=== PATIENT | male | born 1970 | race Caucasian/White ===

== ENCOUNTER 2023-07-11 06:21 | Inpatient (IN) | payer MEDICARE, MEDICAID ==
[~2023-07-11] VITALS: Ht 180.3 cm; Wt 91.4 kg
[~2023-07-11 06:21] MED LIST: PIPERACILLIN-TAZOB 3.375GM 100 ML IV SCH
[2023-07-11] MEDS: dilTIAZem 25 MG/5 ML VIAL IV ONE ×2 (06:42→07:03)
[2023-07-11 06:56] LABS: Basophils # (auto) 0 10 ^3/uL (0-0.2); Basophils % (auto) 0.1 % (0.0-2.0); Eosinophils # (auto) 0 10 ^3/uL (0-0.8); Hematocrit 48.8 % (41.0-53.0); Hemoglobin 16.5 g/dL (13.5-17.5); Lymphocytes # (auto) 0.9 10 ^3/uL (0.4-5.4); Lymphocytes % (auto) 5.4 % (10.0-50.0); Mean Corpuscular Hemoglobin 30.6 pg (28.0-32.0); Mean Corpuscular Hgb Conc. 33.9 g/dL (32.0-36.0); Mean Corpuscular Volume 90.4 fL (80.0-100.0); Monocytes # (auto) 0.6 10 ^3/uL (0-1.3); Monocytes % (auto) 3.4 % (0.0-12.0); Neutrophils # (auto) 15.3 10 ^3/uL (1.6-8.6); Neutrophils % (auto) 91.1 % (37.0-80.0); Nucleated Red Blood Cells % 0.1 %; White Blood Cell 16.9 10^3/uL (4.4-10.8)
[2023-07-11] MEDS: LORazepam 2MG/ML-1ML VIAL ONE (07:04)
[2023-07-11] MEDS: LORazepam 2MG/ML-1ML VIAL IV ONE (07:04)
[2023-07-11] MEDS: dilTIAZem 125mg/125ml BAG KIT 125 ML IV ONE (07:11)
[2023-07-11] MEDS: ONDANSETRON HCL 4 MG/2 ML VIAL IV ONE (07:11)
[2023-07-11 07:18] LABS: Alanine Aminotransferase 66 U/L (7-40); Alkaline Phosphatase 77 U/L (46-116); Calcium 10.1 mg/dL (8.5-10.1); Chloride 104 mmol/L (98-107)
[2023-07-11 07:19] LABS: Albumin 5.2 g/dL (3.2-4.8); Anion Gap 24 (5-15); Aspartate Aminotransferase 176 U/L (13-40); BUN/Creatinine Ratio 14.5 (10.0-20.0); Bilirubin, Total 0.8 mg/dL (0.2-1.0); Blood Urea Nitrogen 18 mg/dL (9-23); Carbon Dioxide 10 mmol/L (20-30); Glucose 79 mg/dL (74-106); Potassium 4.2 mmol/L (3.5-5.1); Sodium 138 mmol/L (136-145); Total Protein 7.6 g/dL (5.7-8.2)
[2023-07-11 07:52] LABS: Partial Thromboplastin Time 61.5 SEC (24.5-34.5); Prothrombin Time 47.9 sec (9.3-11.8)
[2023-07-11 07:55] VITALS: PULSE 103; RESP 17; O2SAT 98
[2023-07-11 08:02] LABS: INR 5.07 (0.9-1.15)
[2023-07-11] MEDS: SODIUM CHLORIDE 0.9% 1,000 ML IV ONE (08:41)
[2023-07-11] MEDS: THIAMINE 100mg/ml INJ (200mg/2ml VIAL) IV ONE (08:41)
[2023-07-11] MEDS: HALOPERIDOL LACTATE 5 MG/ML INJ VIAL ONE (09:12)
[2023-07-11] MEDS: MORPHINE SULFATE 4 MG/ML SYR/VIAL ONE (09:13)
[2023-07-11] MEDS: HALOPERIDOL LACTATE 5 MG/ML INJ VIAL IM ONE (09:14)
[2023-07-11] MEDS: MORPHINE SULFATE 4 MG/ML SYR/VIAL IV ONE (09:16)
[2023-07-11 09:24] LABS: Urine Bacteria None Seen /hpf (None Seen)
[2023-07-11 10:09] LABS: Urine Blood 2+ /uL (Negative); Urine Clarity Clear (Clear); Urine Color Light-Yellow (Yellow); Urine Protein, UAD 1+ (Negative); Urine Specific Gravity 1.024 (1.001-1.035); Urine Urobilinogen Normal (Negative); Urine WBC <1 /hpf (0 - 3); Urine pH 5.5 (5.0-9.0)
[2023-07-11 10:11] LABS: Amphetamine Screen, Urine Neg (NEGATIVE); Barbiturate Scree,Urine Neg (NEGATIVE); Benzodiazephine Screen, Urine Neg (NEGATIVE); Cocaine Screen, Urine Neg (NEGATIVE)
[2023-07-11 10:12] LABS: Cannabinoid Screen, Urine Pos (NEGATIVE); Opiate Scree,Urine Neg (NEGATIVE); Phencyclidine Screen, Urine Neg (NEGATIVE)
[2023-07-11] MEDS: MIDAZOLAM HCL 2MG/2ML 2ml VIAL (1mg/ml) ONE ×3 (11:19→12:17)
[2023-07-11] MEDS: MIDAZOLAM HCL 2MG/2ML 2ml VIAL (1mg/ml) IV ONE ×3 (11:26→12:18)
[2023-07-11] MEDS: MIDAZOLAM HCL 5 MG/ML-1ML VIAL ONE (12:48)
[2023-07-11] MEDS: MIDAZOLAM HCL 5 MG/ML-1ML VIAL IV ONE (12:49)
[2023-07-11] MEDS: phytonadione 1 ML ONE (13:58)
[2023-07-11] MEDS: PIPERACILLIN-TAZOB 3.375GM 100 ML IV ONE ×2 (13:59→14:04)
[2023-07-11] MEDS: PHYTONADIONE (VIT K)10 MG/ML 1ML VIAL SUBCUT ONE (14:01)
[2023-07-11 14:09] LABS: Alanine Aminotransferase 63 U/L (7-40); Albumin 4.6 g/dL (3.2-4.8); Alkaline Phosphatase 66 U/L (46-116); Anion Gap 19.00001 (5-15); Aspartate Aminotransferase 166 U/L (13-40); BUN/Creatinine Ratio 16.4 (10.0-20.0); Bilirubin, Total 0.6 mg/dL (0.2-1.0); Blood Urea Nitrogen 19 mg/dL (9-23); Calcium 9.2 mg/dL (8.5-10.1); Chloride 110 mmol/L (98-107); Glucose 75 mg/dL (74-106); Potassium 4.1 mmol/L (3.5-5.1); Sodium 139 mmol/L (136-145); Total Protein 6.6 g/dL (5.7-8.2)
[2023-07-11 14:17] LABS: Carbon Dioxide < 10 mmol/L (20-30)
[2023-07-11 14:22] LABS: Phosphorus 4.5 mg/dL (2.4-5.1)
[2023-07-11 14:26] LABS: Magnesium 1.7 mg/dL (1.6-2.6)
[2023-07-11] MEDS: dilTIAZem 125mg/125ml BAG KIT 125 ML IV SCH (16:37)
[2023-07-11] MEDS: SODIUM BICARB 8.4% 50Meq/50ml SYR Vial IV ONE (16:44)
[2023-07-11] MEDS: SODIUM BICARB 50mEq/50ml Vial 150 ML in D5W 5% 1,000 ML IV ONE (17:33)
[2023-07-11 18:18] LABS: Base Excess -7.7 mmol/L (-2.0-2.0)
[2023-07-11 19:05] LABS: Hematocrit 42.3 % (41.0-53.0); Hemoglobin 14.3 g/dL (13.5-17.5)
[2023-07-11 19:19] LABS: Alanine Aminotransferase 65 U/L (7-40); Albumin 4.3 g/dL (3.2-4.8); Alkaline Phosphatase 60 U/L (46-116); Anion Gap 14 (5-15); Aspartate Aminotransferase 168 U/L (13-40); BUN/Creatinine Ratio 12.7 (10.0-20.0); Blood Urea Nitrogen 15 mg/dL (9-23); Calcium 9.1 mg/dL (8.7-10.4); Carbon Dioxide 13 mmol/L (20-30); Chloride 113 mmol/L (98-107); Glucose 90 mg/dL (74-106); Potassium 3.8 mmol/L (3.5-5.1); Sodium 140 mmol/L (136-145)
[2023-07-11 19:20] LABS: Bilirubin, Total 0.8 mg/dL (0.2-1.0); Total Protein 6.7 g/dL (5.7-8.2)
[2023-07-11] MEDS: PANTOPRAZOLE 40mg/50ML NS AE 50 ML IV SCH (19:37)
[2023-07-11] MEDS: PANTOPRAZOLE 80 MG in SODIUM CHL 0.9% 100 ML IV ONE (19:37)
[2023-07-11 19:45] VITALS: PULSE 106; RESP 23; O2SAT 96
[2023-07-11] MEDS: HYDROmorphone HCL 2 MG/ML VL/or syr IV ONE (20:15)
[2023-07-11] MEDS: IOHEXOL 350 MG/ML 100ML IJ ONE (20:55)
[2023-07-11] MEDS: PIPERACILLIN-TAZOB 3.375GM 100 ML IV SCH (21:40)
[2023-07-11] MEDS: diphenhdrAMINE HCL 50 MG/1 ML VL IV ONE (22:12)
[2023-07-11] MEDS: FUROSEMIDE 20 MG/2 ML VIAL IV SCH (22:13)
[2023-07-11] MEDS: ATORVASTATIN 20 MG TAB PO SCH (22:13)
[2023-07-11] MEDS: LORazepam 2MG/ML-1ML VIAL IV PRN (23:35)
[2023-07-12 00:29] LABS: Hematocrit 40.7 % (41.0-53.0); Hemoglobin 13.8 g/dL (13.5-17.5)
[2023-07-12] MEDS: HYDROmorphone HCL 2 MG/ML VL/or syr IV PRN (03:36)
[2023-07-12 05:51] LABS: Basophils # (auto) 0 10 ^3/uL (0-0.2); Basophils % (auto) 0.2 % (0.0-2.0); Eosinophils # (auto) 0 10 ^3/uL (0-0.8); Hematocrit 40.8 % (41.0-53.0); Hemoglobin 14.1 g/dL (13.5-17.5); Lymphocytes # (auto) 1.2 10 ^3/uL (0.4-5.4); Lymphocytes % (auto) 10.3 % (10.0-50.0); Mean Corpuscular Hemoglobin 30.6 pg (28.0-32.0); Mean Corpuscular Hgb Conc. 34.6 g/dL (32.0-36.0); Mean Corpuscular Volume 88.6 fL (80.0-100.0); Monocytes # (auto) 1.2 10 ^3/uL (0-1.3); Monocytes % (auto) 9.9 % (0.0-12.0); Neutrophils # (auto) 9.5 10 ^3/uL (1.6-8.6); Neutrophils % (auto) 79.6 % (37.0-80.0); Red Blood Cells 4.61 10^6/uL (4.5-5.90); Red Cell Distribution Width 13.9 % (11.8-14.3); White Blood Cell 11.9 10^3/uL (4.4-10.8)
[2023-07-12 06:01] LABS: INR 1.91 (0.9-1.15); Prothrombin Time 19.2 sec (9.3-11.8)
[2023-07-12 06:30] LABS: Alanine Aminotransferase 68 U/L (7-40); Albumin 4.4 g/dL (3.2-4.8); Alkaline Phosphatase 61 U/L (46-116); Anion Gap 13 (5-15); Aspartate Aminotransferase 148 U/L (13-40); BUN/Creatinine Ratio 16.2 (10.0-20.0); Blood Urea Nitrogen 19 mg/dL (9-23); Calcium 9.5 mg/dL (8.7-10.4); Carbon Dioxide 19 mmol/L (20-30); Chloride 108 mmol/L (98-107); Glucose 116 mg/dL (74-106); Potassium 3.3 mmol/L (3.5-5.1); Sodium 140 mmol/L (136-145)
[2023-07-12 08:28] VITALS: PULSE 92; RESP 16; O2SAT 96
[2023-07-12 12:11] LABS: Hematocrit 38.2 % (41.0-53.0); Hemoglobin 13.2 g/dL (13.5-17.5)
[2023-07-12] MEDS: POTASSIUM CHL 20 Meq TABLET PO ONE (12:25)
[2023-07-12] MEDS: SODIUM CHLORIDE 0.9% 1,000 ML IV SCH (12:26)
[2023-07-12] MEDS: dilTIAZem 120MG ER CAP PO ONE (16:20)
[2023-07-12] MEDS: WARFARIN SODIUM 2 MG TAB PO ONE (17:09)
[2023-07-12 18:11] LABS: Hematocrit 37.7 % (41.0-53.0)
[2023-07-13] VITALS (8 sets, daily range): BP systolic 108–134; BP diastolic 67–81; PULSE 70–98; RESP 16–18; TEMP 97.4–100.6; O2SAT 95–97
[2023-07-13 06:47] LABS: INR 1.17 (0.9-1.15); Prothrombin Time 12.2 sec (9.3-11.8)
[2023-07-13 09:22] LABS: Hepatitis B Surface Antigen Negative (Negative)
[2023-07-13 09:43] LABS: Hepatitis C Antibody Negative (Negative)
[2023-07-13] MEDS: dilTIAZem 120MG ER CAP PO SCH (09:48)
[2023-07-13] MEDS: POTASSIUM CHL 20 Meq TABLET PO ONE (11:28)
[2023-07-13] MEDS: WARFARIN SODIUM 2 MG TAB PO ONE (17:56)
[2023-07-14 01:00] VITALS: BP 140/86; PULSE 93; RESP 18; TEMP 97.9; O2SAT 96
[2023-07-14 05:00] VITALS: BP 136/82; PULSE 89; RESP 18; TEMP 97.9; O2SAT 97
[2023-07-14 07:19] LABS: INR 1.28 (0.9-1.15); Prothrombin Time 13.2 sec (9.3-11.8)
[2023-07-14 08:00] VITALS: PULSE 81
[2023-07-14 08:48] VITALS: BP 125/77; PULSE 89; RESP 20; TEMP 97.8; O2SAT 98
[2023-07-14] MEDS ORDERED: PANT40T PO (09:48)
[2023-07-14] MEDS ORDERED: DILT-29 PO (09:48)
== END 2023-07-14 14:05 | disposition home or self-care (01) | DRG 871 ==
LOC: EDBD 06:21 → ER 06:21 → TELE 12:53 → TELE-EAST 07-13 02:50
PROVIDERS: ADMIT Nurse Practitioner Family; ATTEND Family Medicine
DX: A41.9 Sepsis, unspecified organism (principal); G93.41 Metabolic encephalopathy; I50.41 Acute combined systolic (congestive) and diastolic (congestive) heart failure; D68.59 Other primary thrombophilia; K92.2 Gastrointestinal hemorrhage, unspecified; E87.20 Acidosis, unspecified; K86.1 Other chronic pancreatitis; I48.91 Unspecified atrial fibrillation; I11.0 Hypertensive heart disease with heart failure; F12.10 Cannabis abuse, uncomplicated; E78.00 Pure hypercholesterolemia, unspecified; F32.A Depression, unspecified; F41.9 Anxiety disorder, unspecified; K21.9 Gastro-esophageal reflux disease without esophagitis; R74.01 Elevation of levels of liver transaminase levels; Z79.01 Long term (current) use of anticoagulants; Z79.899 Other long term (current) drug therapy
CPT/HCPCS: 36415; 36600; 70450; 71045; 71275; 74176; 80053; 80307; 80320; 81001; 82010; 82805; 82962; 83605; 83690; 83735; 84100; 84484; 85014; 85018; 85025; 85610; 85730; 86803; 87040; 87340; 93005; 93306; 96361; 96365; 96375; C9113; G0378; J2250; J2405; J2543; J3430

== ENCOUNTER 2023-09-07 13:35 | Emergency (ER) | payer MEDICARE, MEDICAID ==
[~2023-09-07] VITALS: Ht 182.9 cm; Wt 106.3 kg
[~2023-09-07 13:35] MED LIST changes: +DILT-29 PO; +PANT40T PO; -PIPERACILLIN-TAZOB 3.375GM 100 ML IV SCH
[2023-09-07 16:20] VITALS: BP 121/76; PULSE 91; RESP 12; TEMP 97.7; O2SAT 97
[2023-09-07] MEDS ORDERED: CEPH500C PO (17:43)
== END 2023-09-07 17:43 | disposition home or self-care (01) ==
LOC: ER 13:35
DX: S69.92XA Unspecified injury of left wrist, hand and finger(s), initial encounter (principal); F12.10 Cannabis abuse, uncomplicated; K21.9 Gastro-esophageal reflux disease without esophagitis; Z88.6 Allergy status to analgesic agent; V87.8XXA Person injured in other specified noncollision transport accidents involving motor vehicle (traffic), initial encounter; Y93.89 Activity, other specified; Y92.89 Other specified places as the place of occurrence of the external cause; Y99.8 Other external cause status
CPT/HCPCS: 73130

== ENCOUNTER → 2023-09-16 | Outpatient (CLI) | payer MEDICARE, MEDICAID ==
[~2023-09-16] MED LIST changes: +CEPH500C PO
[2023-09-16 12:19] LABS: Basophils # (auto) 0 10 ^3/uL (0-0.2); Basophils % (auto) 0.5 % (0.0-2.0); Eosinophils # (auto) 0.2 10 ^3/uL (0-0.8); Eosinophils % (auto) 2.8 % (0.0-7.0); Hematocrit 46.3 % (41.0-53.0); Hemoglobin 16.1 g/dL (13.5-17.5); Lymphocytes # (auto) 1.5 10 ^3/uL (0.4-5.4); Lymphocytes % (auto) 28.3 % (10.0-50.0); Mean Corpuscular Hemoglobin 31.3 pg (28.0-32.0); Mean Corpuscular Hgb Conc. 34.7 g/dL (32.0-36.0); Mean Corpuscular Volume 90.3 fL (80.0-100.0); Monocytes # (auto) 0.5 10 ^3/uL (0-1.3); Neutrophils # (auto) 3.2 10 ^3/uL (1.6-8.6); Neutrophils % (auto) 59.4 % (37.0-80.0); Nucleated Red Blood Cells % 0.1 %; Red Blood Cells 5.13 10^6/uL (4.5-5.90); Red Cell Distribution Width 15.4 % (11.8-14.3); White Blood Cell 5.4 10^3/uL (4.4-10.8)
[2023-09-16 12:36] LABS: INR 2.64 (0.9-1.15)
[2023-09-16 12:41] LABS: Alanine Aminotransferase 43 U/L (7-40); Albumin 4.8 g/dL (3.2-4.8); Alkaline Phosphatase 88 U/L (46-116); Anion Gap 0 (5-15); Aspartate Aminotransferase 27 U/L (13-40); BUN/Creatinine Ratio 15.2 (10.0-20.0); Bilirubin, Total 0.3 mg/dL (0.2-1.0); Blood Urea Nitrogen 16 mg/dL (9-23); Calcium 9.7 mg/dL (8.5-10.1); Carbon Dioxide 28 mmol/L (20-30); Chloride 110 mmol/L (98-107); Glucose 93 mg/dL (74-106); Potassium 4.5 mmol/L (3.5-5.1); Sodium 138 mmol/L (136-145); Total Protein 7.5 g/dL (5.7-8.2)
== END | disposition home or self-care (01) ==
LOC: LAB 12:03
PROVIDERS: ATTEND Internal Medicine Gastroenterology
DX: K62.5 Hemorrhage of anus and rectum (principal); R19.4 Change in bowel habit
CPT/HCPCS: 36415; 80053; 84403; 85025; 85610

== ENCOUNTER → 2023-09-17 | Outpatient (CLI) | payer MEDICARE, MEDICAID | END | disposition home or self-care (01) | LOC: LAB 10:49 | PROVIDERS: ATTEND Urology | DX: R97.20 Elevated prostate specific antigen [PSA] (principal) | CPT/HCPCS: 84153 ==

== ENCOUNTER 2023-09-28 08:57 | Inpatient (IN) | payer MEDICARE, MEDICAID ==
[~2023-09-28] VITALS: Ht 185.4 cm; Wt 100.8 kg
[2023-09-28] MEDS: ONDANSETRON HCL 4 MG/2 ML VIAL IV ONE (11:00)
[2023-09-28 11:35] LABS: Basophils # (auto) 0 10 ^3/uL (0-0.2); Basophils % (auto) 0.3 % (0.0-2.0); Eosinophils # (auto) 0 10 ^3/uL (0-0.8); Eosinophils % (auto) 0.1 % (0.0-7.0); Hematocrit 49.3 % (41.0-53.0); Lymphocytes # (auto) 0.6 10 ^3/uL (0.4-5.4); Lymphocytes % (auto) 5.5 % (10.0-50.0); Mean Corpuscular Hemoglobin 31.8 pg (28.0-32.0); Mean Corpuscular Hgb Conc. 34.5 g/dL (32.0-36.0); Monocytes # (auto) 0.7 10 ^3/uL (0-1.3); Neutrophils # (auto) 9.1 10 ^3/uL (1.6-8.6); Neutrophils % (auto) 87.1 % (37.0-80.0); Red Blood Cells 5.35 10^6/uL (4.5-5.90); Red Cell Distribution Width 14.5 % (11.8-14.3); White Blood Cell 10.5 10^3/uL (4.4-10.8)
[2023-09-28] MEDS: ASPirin 81 mg TAB PO ONE (11:46)
[2023-09-28] MEDS: SODIUM CHLORIDE 0.9% 1,000 ML IV ONE (11:47)
[2023-09-28 12:01] LABS: Partial Thromboplastin Time 52.2 SEC (24.5-34.5); Prothrombin Time 42.1 sec (9.3-11.8)
[2023-09-28 12:02] LABS: Alanine Aminotransferase 43 U/L (7-40); Alkaline Phosphatase 89 U/L (46-116); Anion Gap 5 (5-15); Aspartate Aminotransferase 69 U/L (13-40); BUN/Creatinine Ratio 9.8 (10.0-20.0); Blood Urea Nitrogen 12 mg/dL (9-23); Carbon Dioxide 27 mmol/L (20-30); Chloride 106 mmol/L (98-107); Glucose 110 mg/dL (74-106); Potassium 4.8 mmol/L (3.5-5.1); Sodium 138 mmol/L (136-145)
[2023-09-28 12:03] LABS: Bilirubin, Total 0.5 mg/dL (0.2-1.0); Total Protein 7.6 g/dL (5.7-8.2)
[2023-09-28 12:24] LABS: INR 4.44 (0.9-1.15)
[2023-09-28] MEDS ORDERED: ONDANSETRON HCL 4 MG/2 ML VIAL IV PRN (15:45)
[2023-09-28] MEDS ORDERED: BREX1TAB6 PO (15:46)
[2023-09-28] MEDS ORDERED: WARF-66 PO (15:46)
[2023-09-28] MEDS ORDERED: BREX1TAB5 PO (15:46)
[2023-09-28] MEDS ORDERED: PREG150C63 PO (15:46)
[2023-09-28] MEDS: SODIUM CHLORIDE 0.9% 1,000 ML IV SCH (16:00)
[2023-09-28] MEDS: PREGABALIN CAPSULE 75 MG CAP PO SCH (22:46)
[2023-09-29] VITALS (7 sets, daily range): BP systolic 108–128; BP diastolic 59–90; PULSE 86–101; RESP 14–20; TEMP 97.4–98.5; O2SAT 95–98
[2023-09-29] MEDS ORDERED: BACL10TA PO (01:22)
[2023-09-29] MEDS ORDERED: SERT-160 PO (01:22)
[2023-09-29] MEDS ORDERED: MORP30TA5 PO (01:22)
[2023-09-29 02:20] LABS: Urine Bacteria None Seen /hpf (None Seen)
[2023-09-29 02:33] LABS: Urine Blood TRACE /uL (Negative); Urine Clarity Clear (Clear); Urine Color Yellow (Yellow); Urine Mucus FEW (None Seen); Urine Protein, UAD Negative (Negative); Urine Specific Gravity 1.019 (1.001-1.035); Urine Urobilinogen Normal (Negative); Urine WBC 1 /hpf (0 - 3); Urine pH 5.5 (5.0-9.0)
[2023-09-29 03:06] LABS: Amphetamine Screen, Urine Neg (NEGATIVE); Barbiturate Scree,Urine Neg (NEGATIVE); Benzodiazephine Screen, Urine Neg (NEGATIVE)
[2023-09-29 03:07] LABS: Cannabinoid Screen, Urine Pos (NEGATIVE); Cocaine Screen, Urine Neg (NEGATIVE); Opiate Scree,Urine Pos (NEGATIVE); Phencyclidine Screen, Urine Neg (NEGATIVE)
[2023-09-29] MEDS: HYDROcodone-ACET 5/325MG TAB PO PRN (06:09)
[2023-09-29 07:04] LABS: Basophils # (auto) 0 10 ^3/uL (0-0.2); Basophils % (auto) 0.5 % (0.0-2.0); Eosinophils # (auto) 0 10 ^3/uL (0-0.8); Eosinophils % (auto) 0.4 % (0.0-7.0); Hematocrit 44.8 % (41.0-53.0); Hemoglobin 15.3 g/dL (13.5-17.5); Mean Corpuscular Hemoglobin 31.2 pg (28.0-32.0); Mean Corpuscular Hgb Conc. 34.1 g/dL (32.0-36.0); Mean Corpuscular Volume 91.3 fL (80.0-100.0); Monocytes # (auto) 0.8 10 ^3/uL (0-1.3); Monocytes % (auto) 13.5 % (0.0-12.0); Neutrophils # (auto) 4.2 10 ^3/uL (1.6-8.6); Neutrophils % (auto) 68.6 % (37.0-80.0); Nucleated Red Blood Cells % 0.2 %; Red Blood Cells 4.91 10^6/uL (4.5-5.90); Red Cell Distribution Width 14.7 % (11.8-14.3); White Blood Cell 6.1 10^3/uL (4.4-10.8)
[2023-09-29 07:29] LABS: Alanine Aminotransferase 45 U/L (7-40); Alkaline Phosphatase 73 U/L (46-116); Anion Gap 7 (5-15); BUN/Creatinine Ratio 15.1 (10.0-20.0); Blood Urea Nitrogen 16 mg/dL (9-23); Calcium 9.4 mg/dL (8.5-10.1); Carbon Dioxide 24 mmol/L (20-30); Chloride 107 mmol/L (98-107); Glucose 117 mg/dL (74-106); Potassium 3.9 mmol/L (3.5-5.1); Sodium 138 mmol/L (136-145)
[2023-09-29 07:30] LABS: INR 3.77 (0.9-1.15); Prothrombin Time 36.2 sec (9.3-11.8)
[2023-09-29 07:31] LABS: Albumin 4.4 g/dL (3.2-4.8); Aspartate Aminotransferase 75 U/L (13-40); Bilirubin, Total 0.7 mg/dL (0.2-1.0); Total Protein 6.6 g/dL (5.7-8.2)
[2023-09-29] MEDS: PANTOPRAZOLE 40 MG TAB PO SCH (09:22)
[2023-09-29] MEDS: dilTIAZem 120MG ER CAP PO SCH (09:22)
[2023-09-29] MEDS ORDERED: OXYC325T14 PO (17:21)
[2023-09-29] MEDS ORDERED: ERGO1CAP12 PO (17:21)
[2023-09-29] MEDS ORDERED: VORT1TAB3 PO (17:21)
[2023-09-29] MEDS ORDERED: BENZ1TAB6 PO (17:21)
[2023-09-29] MEDS ORDERED: LUBI24CA7 PO (17:21)
[2023-09-29 17:35] LABS: Triglycerides 134 mg/dL (< 150)
[2023-09-29 17:36] LABS: LDL Cholesterol 143 mg/dL (< 100)
[2023-09-29 17:37] LABS: Cholesterol 190 mg/dL (< 200); HDL Cholesterol 39 mg/dL (40-59)
[2023-09-29] MEDS: CYANOCOBALAMIN (B-12) 1000 MCG/1 ML VIAL IM ONE (18:54)
[2023-09-29] MEDS: BREXPIPRAZOLE 4 MG PO SCH (21:20)
[2023-09-29] MEDS: ATORVASTATIN 20 MG TAB PO SCH (21:21)
[2023-09-29] MEDS: BACLOFEN 10 MG TAB PO SCH (21:24)
[2023-09-30] VITALS (7 sets, daily range): BP systolic 114–130; BP diastolic 70–83; PULSE 76–108; RESP 17–20; TEMP 97.7–98.4; O2SAT 94–100
[2023-09-30 06:06] LABS: RPR Non Reactive (Non Reactive)
[2023-09-30 07:04] LABS: INR 2.04 (0.9-1.15); Partial Thromboplastin Time 39.6 SEC (24.5-34.5); Prothrombin Time 20.5 sec (9.3-11.8)
[2023-09-30] MEDS: ASPirin 81 mg TAB PO SCH (08:55)
[2023-09-30] MEDS: CYANOCOBALAMIN 500 MCG TAB PO SCH (08:55)
[2023-09-30 09:43] LABS: Alanine Aminotransferase 48 U/L (7-40); Alkaline Phosphatase 71 U/L (46-116); Calcium 9.5 mg/dL (8.5-10.1); Carbon Dioxide 22 mmol/L (20-30); Chloride 108 mmol/L (98-107)
[2023-09-30 09:44] LABS: Albumin 4.4 g/dL (3.2-4.8); Anion Gap 7 (5-15); Aspartate Aminotransferase 72 U/L (13-40); BUN/Creatinine Ratio 17.8 (10.0-20.0); Bilirubin, Total 0.6 mg/dL (0.2-1.0); Blood Urea Nitrogen 16 mg/dL (9-23); Glucose 97 mg/dL (74-106); Sodium 137 mmol/L (136-145); Total Protein 6.7 g/dL (5.7-8.2)
[2023-09-30] MEDS: APIXABAN 5 MG TAB PO SCH (10:21)
[2023-09-30] MEDS: BENZTROPINE MESY 0.5 MG TAB PO SCH (21:10)
[2023-10-01 01:00] VITALS: BP 101/62; PULSE 93; RESP 20; TEMP 97.2; O2SAT 98
[2023-10-01] MEDS: MELATONIN 5 MG TAB PO ONE (01:27)
[2023-10-01 05:00] VITALS: BP 112/75; PULSE 92; RESP 20; TEMP 97.6; O2SAT 98
[2023-10-01 06:01] LABS: Basophils # (auto) 0 10 ^3/uL (0-0.2); Basophils % (auto) 0.5 % (0.0-2.0); Eosinophils # (auto) 0.1 10 ^3/uL (0-0.8); Eosinophils % (auto) 1.3 % (0.0-7.0); Hematocrit 44.1 % (41.0-53.0); Hemoglobin 15.4 g/dL (13.5-17.5); Lymphocytes # (auto) 1.4 10 ^3/uL (0.4-5.4); Lymphocytes % (auto) 16.5 % (10.0-50.0); Mean Corpuscular Hemoglobin 31.4 pg (28.0-32.0); Mean Corpuscular Hgb Conc. 34.9 g/dL (32.0-36.0); Mean Corpuscular Volume 89.8 fL (80.0-100.0); Monocytes # (auto) 0.7 10 ^3/uL (0-1.3); Neutrophils # (auto) 6.3 10 ^3/uL (1.6-8.6); Neutrophils % (auto) 73.7 % (37.0-80.0); Red Blood Cells 4.91 10^6/uL (4.5-5.90); Red Cell Distribution Width 14.2 % (11.8-14.3); White Blood Cell 8.5 10^3/uL (4.4-10.8)
[2023-10-01 06:21] LABS: INR 1.37 (0.9-1.15); Partial Thromboplastin Time 33.1 SEC (24.5-34.5); Prothrombin Time 14.2 sec (9.3-11.8)
[2023-10-01 07:37] VITALS: BP 114/81; PULSE 95; RESP 20; TEMP 97.4; O2SAT 96
[2023-10-01 08:00] VITALS: PULSE 95; RESP 20; O2SAT 96
[2023-10-01 10:37] VITALS: BP 114/81; PULSE 95; RESP 20; TEMP 97.4; O2SAT 96
== END 2023-10-01 11:30 | DRG 308 ==
LOC: ER 08:57 → TELE 15:34 → TELE-CENTR 23:25 → CENTRAL 09-30 02:35
PROVIDERS: ADMIT Internal Medicine; ATTEND Emergency Medicine
DX: I48.19 Other persistent atrial fibrillation (principal); G92.8 Other toxic encephalopathy; D68.59 Other primary thrombophilia; F32.A Depression, unspecified; G89.4 Chronic pain syndrome; T45.515A Adverse effect of anticoagulants, initial encounter; I10 Essential (primary) hypertension; F12.90 Cannabis use, unspecified, uncomplicated; R74.01 Elevation of levels of liver transaminase levels; F20.9 Schizophrenia, unspecified; K21.9 Gastro-esophageal reflux disease without esophagitis; Z79.899 Other long term (current) drug therapy; Y92.89 Other specified places as the place of occurrence of the external cause; Z79.01 Long term (current) use of anticoagulants; Z71.51 Drug abuse counseling and surveillance of drug abuser
CPT/HCPCS: 36415; 70450; 71046; 80053; 80061; 80307; 80320; 81001; 82140; 82306; 82607; 82746; 82962; 83036; 83735; 84443; 85025; 85379; 85610; 85730; 86592; 93005; 96361; 96374; 97110; 97116; 97163; 97530; G0378; J2405

== ENCOUNTER 2024-04-29 18:53 | Inpatient (IN) | payer MEDICARE, MEDICAID ==
[~2024-04-29] VITALS: Ht 182.9 cm; Wt 117.4 kg
[~2024-04-29 18:53] MED LIST changes: +BACL10TA PO; +BENZ1TAB6 PO; +BREX1TAB6 PO; +ERGO1CAP12 PO; +LUBI24CA7 PO; +MORP30TA5 PO; +OXYC325T14 PO; +PREG150C63 PO; +SERT-160 PO; +VORT1TAB3 PO; +WARF-66 PO
--- NOTE | 2024-04-29 19:08 | ED.PDOC ---
Altered Mental Status HPI Comments 54 yo male with a medical history of AFIB, presents to the ED for an evaluation of a syncopal episode associated with nausea and vomiting this morning Patient reports having multiple syncopal episodes over the span of 2-3 days, states they come onset spontaneously with no triggers and has had positive head and right shoulder injury. Patient reports brief episodes of confusions with SOB x 1 year and has not been evaluated for this. Patient denies any dizziness, fever, chills, chest pain. He reports the use of marijuana. Time Seen by MD: 19:00 Primary Care Provider: UNKNOWN Reviewed Notes: Nurses Notes, Medications, Allergies Allergies: Coded Allergies: Codeine (Verified Allergy, Mild, 09/29/23) patients states codeine makes him vomit Home Meds Active Scripts Cephalexin Monohydrate (Cephalexin) 500 Mg Cap, 1 CAP PO QID for 5 Days, #20 CAP 0 Refills Prov:NENITA SKELTON [employer] 09/07/23 Pantoprazole Sodium Sesquihydr (Pantoprazole Sodium) 40 Mg Tab, 40 MG PO DAILY, #30 TAB Prov:MATEO HOLLEY MD 07/14/23 Diltiazem Hcl (DILTIAZEM HCL ER) 240 Mg Cap, 1 CAP PO DAILY, #90 CAP 1 Refill Prov:MATEO HOLLEY MD 07/14/23 Reported Medications Ergocalciferol (Vitamin D) 50,000 Unit Cap, 1 CAP PO QWEEKLY 09/29/23 Benztropine Mesylate (Benztropine Mesylate) 1 Mg Tab, 1 TAB PO BID 09/29/23 Vortioxetine Hydrobromide (Trintellix) 20 Mg Tab, 1 TAB PO HS 09/29/23 Lubiprostone (Amitiza) 24 Mcg Cap, 1 CAP PO DAILY 09/29/23 Oxycodone W/ Acetaminophen (Apap/Oxycodone) 1 Tab Tab, 1 TAB PO Q8HR [10/325 mg] 09/29/23 Sertraline Hcl (Sertraline Hcl) 100 Mg Tab, 1 TAB PO BID 09/29/23 Baclofen (Baclofen) 10 Mg Tab, 1 TAB PO TID 09/29/23 Morphine Sulfate (Morphine Sulfate Cr) 30 Mg Tab, 1 TAB PO BID 09/29/23 Brexpiprazole (Rexulti) 4 Mg Tab, 1 TAB PO DAILY 09/28/23 Pregabalin (Pregabalin) 150 Mg Cap, 1 CAP PO BID 09/28/23 Warfarin Sodium (Warfarin Sodium) 5 Mg Tab, TAB PO UD Take 1 tablet (5 mg) by mouth once daily, EXCEPT take 1 and 1/2 tablets (7.5 mg) by mouth on Thursday09/28/23 Information Source: Patient Mode of Arrival: Ambulatory Severity: Moderate Timing: Came on: Gradually Duration: Since onset Quality: Confusion Recent: Nausea, Vomiting History of: None Associated Signs and Symptoms: Other Past Medical History PAST MEDICAL HISTORY: AFIB, Depression, GERD Surgical History (Other): Bilateral shoulder and neck Family History Family History: Unknown Social History Smoker: Non-Smoker Alcohol: Denies ETOH Use Drugs: Marijuana Lives In: Home Constitutional: denies: chills, diaphoresis, fatigue, fever, malaise, sweats, weakness, others EENTM: denies: blurred vision, double vision, ear bleeding, ear discharge, ear drainage, ear pain, ear ringing, eye pain, eye redness, hearing loss, mouth pain, mouth swelling, nasal discharge, nose bleeding, nose congestion, nose pain, photophobia, tearing, throat pain, throat swelling, voice changes, others Respiratory: reports: SOB at rest, shortness of breath, SOB with excertion; denies: cough, hemoptysis, orthopnea, stridor, wheezing, others Cardiovascular: reports: syncope; denies: chest pain, dizzy spells, diaphoresis, Dyspnea on exertion, edema, irregular heart beat, left arm pain, lightheadedness, palpitations, PND, others Gastrointestinal: reports: nausea, vomiting; denies: abdomen distended, abdominal pain, blood streaked bowels, constipated, diarrhea, dysphagia, difficulty swallowing, hematemesis, melena, poor appetite, poor fluid intake, rectal bleeding, rectal pain, others Genitourinary: denies: burning, dysuria, flank pain, frequency, hematuria, incontinence, penile discharge, penile sore, pain, testicle pain, testicle swelling, urgency, others Neurological: denies: dizziness, fainting, headache, left sided numbness, left sided weakness, numbness, paresthesia, pre-existing deficit, right sided numbness, right sided weakness, seizure, speech problems, tingling, tremors, weakness, others Musculoskeletal: denies: back pain, gout, joint pain, joint swelling, muscle pain, muscle stiffness, neck pain, others Integumetry: denies: bruises, change in color, change in hair/nails, dryness, laceration, lesions, lumps, rash, wounds, others Allergic/Immunocompromised: denies: Difficulty Healing, Frequent Infections, Hives, Itching, others Hematologic/Lymphatic: denies: anemia, blood clots, easy bleeding, easy bruising, swollen glands, others Endocrine: denies: excessive hunger, excessive sweating, excessive thirst, excessive urination, flushing, intolerance to cold, intolerance to heat, unexplained weight gain, unexplained weight loss, others Psychiatric: denies: anxiety, bipolar disorder, depression, hopeless, panic disorder, schizophrenia, sleepless, suicidal, others All Other Systems: Reviewed and Negative Physical Exam General Appearance: Moderate Distress HEENT: Normal ENT Inspection, Pharynx Normal, TMs Normal Neck: Full Range of Motion, Non-Tender, Normal, Normal Inspection Respiratory: Chest Non-Tender, Lungs Clear, No Accessory Muscle Use, No Respiratory Distress, Normal Breath Sounds Cardiovascular: No Edema, No JVD, No Murmur, No Gallop, Normal Peripheral Pulses, Regular Rate/Rhythm Breast Exam: Deferred Gastrointestinal: No Organomegaly, Non Tender, No Pulsatile Mass, Normal Bowel Sounds, Soft Genitalia: Deferred Pelvic: Deferred Rectal: Deferred Extremities: No calf tenderness, Normal capillary refill, Normal inspection, Normal range of motion, Non-tender, No pedal edema Musculoskeletal : Apperance: Normal 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 Was a procedure done?: No Differential Diagnosis (ALOC) Differential Diagnosis: Dehydration, Closed Head Injury X-Ray, Labs, Meds, VS Vital Signs Date Time Temp Pulse Resp B/P (MAP) Pulse Ox O2 Delivery O2 Flow Rate FiO2 04/29/24 19:39 98.2 90 20 150/86 (107) 95 Lab Test 04/29/24 19:37 04/29/24 19:18 Range/Units POC Glucose Pending White Blood Count 8.5 4.4-10.8 10^3/uL Red Blood Count 5.34 4.5-5.90 10^6/uL Hemoglobin 16.2 13.5-17.5 g/dL Hematocrit 47.8 41.0-53.0 % Mean Corpuscular Volume 89.5 80.0-100.0 fL Mean Corpuscular Hemoglobin 30.3 28.0-32.0 pg Mean Corpuscular Hemoglobin Concent 33.8 32.0-36.0 g/dL Red Cell Distribution Width 14.4 H 11.8-14.3 % Platelet Count 292 140-450 10^3/uL Mean Platelet Volume 9.3 6.9-10.8 fL Neutrophils (%) (Auto) 69.3 37.0-80.0 % Lymphocytes (%) (Auto) 20.8 10.0-50.0 % Monocytes (%) (Auto) 7.3 0.0-12.0 % Eosinophils (%) (Auto) 2.0 0.0-7.0 % Basophils (%) (Auto) 0.6 0.0-2.0 % Neutrophils # (Auto) 5.9 1.6-8.6 10 ^3/uL Lymphocytes # (Auto) 1.8 0.4-5.4 10 ^3/uL Monocytes # (Auto) 0.6 0-1.3 10 ^3/uL Eosinophils # (Auto) 0.2 0-0.8 10 ^3/uL Basophils # (Auto) 0.1 0-0.2 10 ^3/uL Nucleated Red Blood Cells 0.1 % D-Dimer, Quantitative Pending Sodium Level Pending Potassium Level Pending Chloride Level Pending Carbon Dioxide Level Pending Anion Gap Pending Blood Urea Nitrogen Pending Creatinine Pending Glomerular Filtration Rate Calc Pending BUN/Creatinine Ratio Pending Serum Glucose Pending Calcium Level Pending Troponin I High Sensitivity Pending IV Hep-Lock was established The CBC is within normal limits CT scan of the head shows: No sign of any abnormalities The chest x-ray shows: IMPRESSION: Right lower lobe atelectasis or pneumonia. The patient was being admitted at this time We have discussed the findings with the patient and they are in agreement There is a concern that this could be a CVA or a possible cardiac event We will continue to monitor the patient and the patient will be admitted Images Reviewed?: Images reviewed and evaluated by me Time of 1ST Reevaluation: 19:03 Reevaluation 1ST: Unchanged Patient Education/Counseling: Diagnosis, Treatment, Prognosis Family Education/Counseling: No Family Present Departure 1 Departure Time of Disposition: 19:51 Impression: Primary Impression: Autonomic dysfunction Disposition: 09 ADMITTED INPATIENT Admit to: Tele Condition: Fair Critical Care Note Critical Care Time?: Yes (45 min-critical care time only) Stability Stability form required: Yes Unstable for transfer: Telemetry monitoring (Telemetry monitoring required), ED Physician Assesment (Clinical assesment) I personally scribed for YOSEF FRENCH MD ([email or web address]) on 04/29/24 at 19:08. Electronically submitted by Beverley Raygoza ([facility]). YOSEF FRENCH MD Apr 29, 2024 19:08
--- NOTE | 2024-04-29 19:20 | DVH ---
EXAM: XR Chest, 2 Views CLINICAL INDICATION: cp TECHNIQUE: Frontal and lateral views of the chest. COMPARISON: XY CHEST TWO VIEWS ROUTINE on DOS: 09/28/23 FINDINGS: LUNGS AND PLEURAL SPACES: Right lower lobe atelectasis or pneumonia. No pneumothorax. HEART: Unremarkable. No cardiomegaly. MEDIASTINUM: Unremarkable. Normal mediastinal contour. BONES/JOINTS: Unremarkable. No acute fracture. OTHER FINDINGS: . . IMPRESSION: Right lower lobe atelectasis or pneumonia.
--- NOTE | 2024-04-29 19:29 | DVH ---
CT BRAIN WITHOUT CONTRAST HISTORY: syncope TECHNIQUE: Axial scans were obtained from the skull base through the vertex without contrast. Sagitta l and coronal reformats were generated. One or more of the following radiation dose reduction techniq ues were used for this examination: automated exposure control, adjustment of the mA and/or kV accord ing to patient size, use of iterative reconstruction technique. COMPARISON: CT HEAD WITHOUT CONTRAST on DOS: 09/28/23 FINDINGS: Streak and motion artifact limit evaluation. As visualized no definite acute intracranial hemorrhage or evidence of large vessel territorial infar ction is identified at this time. No midline shift. The basilar cisterns are patent. Mucosal thickening in the left maxillary sinus. The mastoid air cells are clear. No grossly displace d calvarial fracture is identified. IMPRESSION: No definite acute intracranial findings as visualized. If there is persistent clinical concern, short -term interval follow-up may be considered to re-evaluate.
[2024-04-29 19:35] LABS: Basophils # (auto) 0.1 10 ^3/uL (0-0.2); Basophils % (auto) 0.6 % (0.0-2.0); Eosinophils # (auto) 0.2 10 ^3/uL (0-0.8); Hematocrit 47.8 % (41.0-53.0); Hemoglobin 16.2 g/dL (13.5-17.5); Lymphocytes # (auto) 1.8 10 ^3/uL (0.4-5.4); Lymphocytes % (auto) 20.8 % (10.0-50.0); Mean Corpuscular Hemoglobin 30.3 pg (28.0-32.0); Mean Corpuscular Hgb Conc. 33.8 g/dL (32.0-36.0); Mean Corpuscular Volume 89.5 fL (80.0-100.0); Monocytes # (auto) 0.6 10 ^3/uL (0-1.3); Monocytes % (auto) 7.3 % (0.0-12.0); Neutrophils # (auto) 5.9 10 ^3/uL (1.6-8.6); Neutrophils % (auto) 69.3 % (37.0-80.0); Nucleated Red Blood Cells % 0.1 %; Platelet Count (auto) 292 10^3/uL (140-450); Red Blood Cells 5.34 10^6/uL (4.5-5.90); Red Cell Distribution Width 14.4 % (11.8-14.3); White Blood Cell 8.5 10^3/uL (4.4-10.8)
[2024-04-29 19:47] LABS: Chloride 106 mmol/L (98-107); Potassium 4.8 mmol/L (3.5-5.1); Sodium 139 mmol/L (136-145)
[2024-04-29 19:48] LABS: Anion Gap 5 (5-15); Carbon Dioxide 28 mmol/L (20-31)
[2024-04-29 19:53] LABS: BUN/Creatinine Ratio 15.3 (10.0-20.0); Blood Urea Nitrogen 15 mg/dL (9-23); Glucose 105 mg/dL (74-106)
[2024-04-29 20:06] LABS: Calcium 10.6 mg/dL (8.7-10.4)
--- NOTE | 2024-04-29 21:27 | DVHHPRES ---
History of Present Illness Resident Creating Document: [facility] History of Present Illness This is a 54-year-old male with past medical history of atrial fibrillation, schizoaffective disorder, depression, dyslipidemia, CVA, cervical spine degenerative disc disease (status post surgery, fused C4-5 and C5-6, replaced C3) presented to the hospital after episodes of witnessed loss of consciousness. Per patient, the patient had lost consciousness 3 times, 3 days back and per patient it was witnessed by his son. The episodes occurred when he was in bath, lost consciousness and hit his shoulder, upon waking up, the patient was oriented and had no headache, confusion, did not bite his tongue and had no urinary/stool incontinence. He also reports paranoid thoughts, nausea, vomiting, cough, shortness of breath, sweating, clumsiness and generalized weakness since 3-4 months, but recently has increased. Patient denies fever, chest pain, abdominal pain, and any recent sensory or motor deficits. Per patient, he was not feeling good since 4 days and has stopped taking psychiatric medicine. He is experiencing that his body and his spirit is telling to the people about his past and the people are teasing him, during my assessment he pointed a person that he is coughing because he is trying to tease me. PMHx: atrial fibrillation, schizoaffective disorder, depression, dyslipidemia, CVA, cervical spine degenerative disc disease (status post surgery, fused C4-5 and C5-6, replaced C3) PSHx: Cervical-spine surgery Social history: Smokes marijuana, denies any other drug use Home medication: Eliquis, Protonix, vortioxetine, Percocet, sertraline, pregabalin, Brexpiprazole Allergic history: Hydromorphone Review of Systems Review of Systems General: Reports sweating and clammy HEENT: No headaches, visiual changes, hearing loss, tinnitus, nasal congestion and discharge, and sore throat. Cardiovascular: Denies chest pain, palpitations, dyspnea on exertion, orthopnea, or claudication. Respiratory: Reports cough and shortness of breaths Gastrointestinal: Reports nausea and vomiting Genitourinary: No dysuria, hematuria, discharge, frequency, urgency, nocturia, incontinence, and urinary retention. Endocrine: No heat or cold intolerance, polydipsia, polyuria, and polyphagia. Neurological: Reports and dizziness Psychiatric: Denies depression, anxiety,or insomnia. Musculoskeletal: Denies neck pain, stiffness and swelling, back pain, muscle w eakness, joint pain, stiffness, swelling, or limited range of motion. Skin: No rashes, itching, skin lesion, changes in hair, nail, skin texture and breast. Hematologic/Lymphatic: Denies easy bruising, bleeding tendencies, or lymph node enlargement. Allergies: Coded Allergies: Codeine (Verified Allergy, Mild, 09/29/23) patients states codeine makes him vomit Exam Vital Signs Vital Signs Date Time Temp Pulse Resp B/P (MAP) Pulse Ox O2 Delivery O2 Flow Rate FiO2 04/29/24 19:47 73 04/29/24 19:39 98.2 20 150/86 (107) 95 Exam General Appearance: Alert, Oriented X3, Cooperative, No acute distress HEENT: Atraumatic, PERRLA, EOMI, Mucous membrane moist/pink Respiratory: Clear to auscultation, Normal air movement Cardiovascular: Regular rate, Normal S1, Normal S2, No murmurs, no chest wall tenderness Abdominal: Normal bowel sounds, Soft, No tenderness, No hepatospenomegaly, No masses Extremities: No clubbing, No cyanosis, No edema, Normal pulses, No tenderness/swelling Skin: No rashes, No breakdown, No significant lesion Neuro: Imbalance during walking Psych/Mental Status: Mental status NL, Mood NL Labs/Xrays Labs Test 04/29/24 19:37 04/29/24 19:18 Range/Units POC Glucose 107 H 70-106 mg/dl White Blood Count 8.5 4.4-10.8 10^3/uL Red Blood Count 5.34 4.5-5.90 10^6/uL Hemoglobin 16.2 13.5-17.5 g/dL Hematocrit 47.8 41.0-53.0 % Mean Corpuscular Volume 89.5 80.0-100.0 fL Mean Corpuscular Hemoglobin 30.3 28.0-32.0 pg Mean Corpuscular Hemoglobin Concent 33.8 32.0-36.0 g/dL Red Cell Distribution Width 14.4 H 11.8-14.3 % Platelet Count 292 140-450 10^3/uL Mean Platelet Volume 9.3 6.9-10.8 fL Neutrophils (%) (Auto) 69.3 37.0-80.0 % Lymphocytes (%) (Auto) 20.8 10.0-50.0 % Monocytes (%) (Auto) 7.3 0.0-12.0 % Eosinophils (%) (Auto) 2.0 0.0-7.0 % Basophils (%) (Auto) 0.6 0.0-2.0 % Neutrophils # (Auto) 5.9 1.6-8.6 10 ^3/uL Lymphocytes # (Auto) 1.8 0.4-5.4 10 ^3/uL Monocytes # (Auto) 0.6 0-1.3 10 ^3/uL Eosinophils # (Auto) 0.2 0-0.8 10 ^3/uL Basophils # (Auto) 0.1 0-0.2 10 ^3/uL Nucleated Red Blood Cells 0.1 % D-Dimer, Quantitative 0.20 0.0-0.49 mg/L FEU Sodium Level 139 136-145 mmol/L Potassium Level 4.8 3.5-5.1 mmol/L Chloride Level 106 98-107 mmol/L Carbon Dioxide Level 28 20-31 mmol/L Anion Gap 5 5-15 Blood Urea Nitrogen 15 9-23 mg/dL Creatinine 0.98 0.700-1.30 mg/dL Glomerular Filtration Rate Calc 91 >90 mL/min BUN/Creatinine Ratio 15.3 10.0-20.0 Serum Glucose 105 74-106 mg/dL Calcium Level 10.6 H 8.7-10.4 mg/dL Troponin I High Sensitivity 3 L </=54 ng/L Assessment/Plan Assessment/Plan Syncope, likely due to vasovagal History of AFib History of CVA Echocardiogram EKG shows atrial fibrillation Continue Eliquis IV fluid Pneumonia, likely due to Gram-positive Gram-negative bacteria/viral Right basal Atelectasis Chest x-ray shows right-sided atelectasis, left-sided hyperinflation with bilateral lower zone reticulonodular infiltration Empiric antibiotic, azithromycin IV fluid History of schizoaffective disorder Continue Brexpiprazole Telepsych consultation History of Cervical spine osteoarthritis [place] p.r.n. DIET: Cardiac diet DVT PROPHYLAXIS: Eliquis GI PROPHYLAXIS:: Protonix DISPOSITION: Telemetry Patient's status and paln discussed with the patient Case discussed with Dr. Pantoja. Plan discussed with: Patient, Other (RN) Date of Service: Apr 29, 2024 Billing Provider: MARLEN MCCALL MD Common Visit Codes: [id number] INP/OBS CARE (HIGH) PANCHO CHAN RESDIENT Apr 29, 2024 21:27 MARLEN MCCALL MD May 04, 2024 16:06
[2024-04-29] MEDS ORDERED: NITROGLYCERIN 0.4 MG SL TAB SL PRN (21:30)
[2024-04-29] MEDS: AZITHROMYCIN 500MG/ 250ML 250 ML IV ONE (22:00)
[2024-04-29] MEDS: ENOXAPARIN SOD 40 MG/0.4 ML SYRINGE SC ONE (22:00)
[2024-04-29 22:39] VITALS: PULSE 70; RESP 15; O2SAT 96
[2024-04-29 22:59] LABS: Alanine Aminotransferase 17 U/L (7-40); Alkaline Phosphatase 88 U/L (46-116); Aspartate Aminotransferase 19 U/L (13-40); Total Protein 7.5 g/dL (5.7-8.2)
[2024-04-29 23:01] LABS: INR 1.03 (0.9-1.15); Prothrombin Time 10.9 sec (9.3-11.8)
[2024-04-29 23:21] LABS: Albumin 4.9 g/dL (3.2-4.8); Bilirubin, Direct < 0.1 mg/dL (<0.3); Bilirubin, Total 0.2 mg/dL (0.2-1.0)
[2024-04-29 23:34] VITALS: BP 105/84; PULSE 77; RESP 18; TEMP 98; O2SAT 96
[2024-04-30] VITALS (13 sets, daily range): BP systolic 102–122; BP diastolic 56–88; PULSE 68–90; RESP 13–18; TEMP 97.3–98.7; O2SAT 96–97
[2024-04-30] MEDS: SODIUM CHLORIDE 0.9% 1,000 ML IV ONE ×2 (00:45→01:45)
[2024-04-30] MEDS: SERTRALINE HCL 50 MG TAB PO ONE (01:01)
[2024-04-30] MEDS: BENZTROPINE MESY 0.5 MG TAB PO ONE (01:02)
[2024-04-30] MEDS: PREGABALIN CAPSULE 75 MG CAP PO ONE (01:20)
[2024-04-30] MEDS: OXYCODONE W/ ACETAMINOPHEN 5/325MG TABLET PO PRN (02:05)
[2024-04-30 02:07] LABS: Basophils # (auto) 0 10 ^3/uL (0-0.2); Basophils % (auto) 0.5 % (0.0-2.0); Eosinophils # (auto) 0.2 10 ^3/uL (0-0.8); Eosinophils % (auto) 2.4 % (0.0-7.0); Hematocrit 44.9 % (41.0-53.0); Hemoglobin 15.4 g/dL (13.5-17.5); Lymphocytes # (auto) 1.8 10 ^3/uL (0.4-5.4); Mean Corpuscular Hemoglobin 30.3 pg (28.0-32.0); Mean Corpuscular Hgb Conc. 34.3 g/dL (32.0-36.0); Mean Corpuscular Volume 88.3 fL (80.0-100.0); Monocytes # (auto) 0.6 10 ^3/uL (0-1.3); Monocytes % (auto) 8.3 % (0.0-12.0); Neutrophils # (auto) 4.7 10 ^3/uL (1.6-8.6); Neutrophils % (auto) 63.8 % (37.0-80.0); Nucleated Red Blood Cells % 0.2 %; Platelet Count (auto) 266 10^3/uL (140-450); Red Blood Cells 5.08 10^6/uL (4.5-5.90); Red Cell Distribution Width 14.6 % (11.8-14.3); White Blood Cell 7.4 10^3/uL (4.4-10.8)
[2024-04-30 02:28] LABS: Alanine Aminotransferase 17 U/L (7-40); Albumin 4.5 g/dL (3.2-4.8); Alkaline Phosphatase 84 U/L (46-116); Anion Gap 4 (5-15); Aspartate Aminotransferase 14 U/L (13-40); BUN/Creatinine Ratio 18.4 (10.0-20.0); Blood Urea Nitrogen 21 mg/dL (9-23); Carbon Dioxide 29 mmol/L (20-31); Chloride 106 mmol/L (98-107); Glucose 88 mg/dL (74-106); Potassium 4.5 mmol/L (3.5-5.1); Sodium 139 mmol/L (136-145); Total Protein 6.8 g/dL (5.7-8.2)
[2024-04-30 02:52] LABS: Calcium 10.5 mg/dL (8.7-10.4)
[2024-04-30 02:53] LABS: Bilirubin, Total < 0.2 mg/dL (0.2-1.0)
[2024-04-30] MEDS: ONDANSETRON HCL 4 MG/2 ML VIAL IV ONE (04:24)
[2024-04-30] MEDS: PANTOPRAZOLE 40 MG/10 ML VIAL INJ IV ONE (04:38)
[2024-04-30] MEDS: cefTRIAXone 1GM/50ML D5W 50 ML IV SCH (09:57)
[2024-04-30] MEDS ORDERED: ENOXAPARIN SOD 40 MG/0.4 ML SYRINGE SC SCH (10:00)
[2024-04-30] MEDS: PREGABALIN CAPSULE 75 MG CAP PO SCH (10:00)
[2024-04-30] MEDS: BENZTROPINE MESY 0.5 MG TAB PO SCH (10:00)
[2024-04-30] MEDS: BREXPIPRAZOLE 4 MG PO SCH (10:00)
[2024-04-30] MEDS: APIXABAN 5 MG TAB PO SCH (10:01)
[2024-04-30 11:59] LABS: Urine Bacteria None Seen /hpf (None Seen)
[2024-04-30 12:23] LABS: Benzodiazephine Screen, Urine Neg (NEGATIVE); Opiate Scree,Urine Neg (NEGATIVE)
[2024-04-30] MEDS: AZITHROMYCIN 500MG/ 250ML 250 ML IV SCH (12:23)
[2024-04-30 12:25] LABS: Amphetamine Screen, Urine Neg (NEGATIVE); Barbiturate Scree,Urine Neg (NEGATIVE); Cannabinoid Screen, Urine Pos (NEGATIVE); Cocaine Screen, Urine Neg (NEGATIVE); Phencyclidine Screen, Urine Neg (NEGATIVE)
[2024-04-30 12:32] LABS: Urine Blood Negative /uL (Negative); Urine Clarity Clear (Clear); Urine Color Light-Yellow (Yellow); Urine Protein, UAD Negative (Negative); Urine Squamous Epithelial Cell FEW /hpf (<5); Urine Urobilinogen Normal (Negative); Urine WBC 1 /HPF (0-3); Urine pH 5.5 (5.0-9.0)
[2024-04-30 13:52] LABS: Rapid Influenza A Negative (Negative); Rapid Influenza B Negative (Negative)
[2024-04-30 13:53] LABS: COVID19 ANTIGEN SOFIA FIA NEGATIVE (NEGATIVE)
--- NOTE | 2024-04-30 17:44 | DVHPNRES ---
Progress Note Date Seen: Apr 30, 2024 Resident Creating Document: BRAXTON VÁSQUEZ RESIDENT Has the PT tested + for MRSA If YES, has PT been informed?: No Medical Necessity Reason Pt with a Central, PICC or Fol: No Subjective Review of Systems This is a 54-year-old male with past medical history of atrial fibrillation, schizoaffective disorder, depression, dyslipidemia, CVA, 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 The patient presented to the ED with chief complaint of loss of consciousness at home x3. The patient explained that he wants to the bathroom and he was looking at the mirror and started feeling hot sensation in his body with nausea, vomiting and tunnel vision that became dark following by syncopal event. The patient states that the son was there and heard noises in the bathroom and went to help him. The patient states that when he recovered he could remember every aspect of the episode. Upon admission, the patient denied fever, chest pain, abdominal pain or any other recent complaints at that time. Apparently on admission the patient was describing paranoid thoughts but on my examination the patient was providing a clear history. The patient was admitted for further assessment and management of syncopal episode. The patient was seen and examined at bedside. The patient was alert and oriented in person, place and time and was providing a clear history at this time. The patient denied chest pain, palpitations, abdominal pain or any other symptoms at this time. We will check orthostatic vitals which were as follow First set as follows 1015: Supine 102/69 BP 82 HR, 1017: Sitting 107/73 BP 86 HR, 1018: Standing 103/64 90 HR. Second set as follows: 1020: Supine 105/68 BP 72 HR, 1021: Sitting 113/63 BP 69 HR 1022: Standing 122/59 BP 77 HR. EKG was reviewed which was showing atrial fibrillation on rate control. The patient is currently taking apixaban 5 mg b.i.d. patient was started on IV antibiotics ceftriaxone azithromycin for undergoing bacterial pneumonia as well. ROS Constitutional: Denies weight loss, fever and chills. HEENT: Denies changes in vision and hearing. Respiratory: Denies shortness of breath and cough Cardiovascular: Denies chest discomfort or palpitations GI: Denies abdominal pain, nausea, vomiting and diarrhea. : Denies dysuria and urinary frequency. Musculoskeletal: Denies myalgias and joint pain Skin: Denies rash and pruritus. Neurological: Denies dizziness, headache, vision or hearing problems Objective vital signs Vital Sign Date Time Temp Pulse Resp B/P (MAP) Pulse Ox O2 Delivery O2 Flow Rate FiO2 04/30/24 13:00 97.4 73 13 116/56 (76) 96 97.4 04/29/24 22:39 Room Air* 0 21 Total Intake and Output 04/29/24 04/29/24 04/30/24 15:00 23:00 07:00 Intake Total 550 ml Output Total 800 ml Balance -250 ml medications Current Medications Medications Dose Ordered Sig/Demian Route Start Time Stop Time Status Last Admin Dose Admin Nitroglycerin 0.4 mg Q5MINP PRN SL 04/29/24 21:30 Azithromycin 250 ml @ 125 mls/hr DAILY IV 04/30/24 10:00 04/30/24 12:23 125 MLS/HR Sertraline HCl 100 mg Q24H PO 04/30/24 21:00 Benztropine Mesylate 1 mg DAILY PO 04/30/24 10:00 04/30/24 10:00 1 MG Patient Own Medication 1 DAILY PO 04/30/24 10:00 Pregabalin 150 mg BID PO 04/30/24 10:00 04/30/24 10:00 150 MG Oxycodone/ Acetaminophen 2 tab Q6HP PRN PO 04/30/24 01:30 04/30/24 10:00 2 TAB Pantoprazole Sodium 40 mg DAILY IV 05/01/24 10:00 Apixaban 5 mg BID PO 04/30/24 10:00 04/30/24 10:01 5 MG Ceftriaxone Sodium 50 ml @ 100 mls/hr DAILY@09 IV 04/30/24 09:00 04/30/24 09:57 100 MLS/HR Examination Physical Examination General: Patient alert and oriented in person, place and time. Patient following commands. HEENT: Normocephalic, atraumatic, moist mucous membranes Respiratory/pulmonary: Clear lungs bilaterally, no associated crackles or wheezes. Cardiovascular: Normal heart sounds S1 and S2 with no associated murmurs Abdomen: Abdomen nondistended, there is no pain to palpation in any of the abdominal quadrants, no palpable masses. Extremities: There is no peripheral edema present at the lower extremities. Peripheral Pulses: 3+ Radial (R). 3+ Radial (L). 3+ Dorsalis pedis (R). 3+ Dorsalis pedis(L) Skin: No rashes or pruritus, there is no sacral edema present at this time. Neurological: Intact cranial nerves with no focal neurologic deficits laboratory and microbiology Laboratory Tests 04/30/24 01:54 Test 04/30/24 01:54 Range/Units Serum Glucose 88 74-106 mg/dL Problem List/Assessment/Plan Problem List/Assessment/Plan Assessment/Plan Syncopal episode likely vasovagal, R/O cardiogenic etiology Atrial fibrilation on rate control -initial chest x-ray showing right lower lobe opacities which could represent consolidation versus atelectasis. -head CT was grossly unremarkable -EKG showed atrial fibrillation on rate control without ST segment elevation or T-wave abnormalities. -continue Eliquis 5 mg b.i.d. -stop IV fluids at this time -orthostatic vitals we are grossly unremarkable as follows: 1015: Supine 102/69 BP 82 HR, 1017: Sitting 107/73 BP 86 HR, 1018: Standing 103/64 90 HR. Second set as follows: 1020: Supine 105/68 BP 72 HR, 1021: Sitting 113/63 BP 69 HR 1022: Standing 122/59 BP 77 HR. -Telemetri for overnight analysis of afib to detect any RVR or any tachyarrhythmias Possible right lower lobe Gram-positive, Gram-negative bacterial pneumonia -chest x-ray showed right lower lobe opacities which could be associated with atelectasis or pneumonia -start IV azithromycin -start IV ceftriaxone -patient is currently saturating 96% on room air. -hold IV fluids at this time. History of schizoaffective disorder -tele psych consultation -Continue Brexpiprazole History of cervical spine osteoarthritis with cervical fusion -continue pain medications Goals of care discussed with the patient at bedside for >23min, FULL CODE Plan discussed with Dr. Zhu Plan discussed with: Patient My Orders My Orders Orders - BRAXTON VÁSQUEZ Procedure Category Date Status Time Ceftriaxone 1gm/50ml PHA 04/30/24 In Process D5w (Rocephin) 09:00 * Outside Sales Consultant CONS 04/30/24 Transmitted Consult 07:30 BRAXTON VÁSQUEZ Apr 30, 2024 17:44
[2024-04-30] MEDS: SERTRALINE HCL 50 MG TAB PO SCH (20:24)
--- NOTE | 2024-04-30 20:25 | DVHSR ---
APPROVED REPORT EXAM: Two-dimensional and M-mode echocardiogram with Doppler and color Doppler. Blood Pressure: 112/88 mmHg INDICATION Syncope hs of a Fib RISK FACTORS Obesity: Height: 6'0, Weight: 268 DIMENSIONS LVDd5.1 (3.8-5.7cm)LA (2D)4.2 (1.9-4.0cm)Aortic Root4.0 (2.0-3.7cm) LVDs3.8 (2.5-4.0cm)LA (MM) (1.9-4.0cm)Aortic Cusp Exc2.2 (1.5-2.0cm) EF (%) 50.0 (55-70%)Rt. Atrium4.1 (1.9-4.0cm)Asc. Aorta3.4 cm IVSd0.9 (0.7-1.1cm)RV (D)4.2 (1.8-2.4cm) PWd1.0 (0.7-1.1cm) Mitral Valve MitralMitral Stenosis E wave0.79m/sMV Mean GR.2mmHg A wavem/sMV Peak GR.5mmHg E/A ratio0.02D MVAcm2 DECEL [id number] 1/2 [place] Aortic Valve Aortic ValveAortic Stenosis V10.64m/Olman Mean GR.2mmHg V21.06m/Olman Peak GR.5mmHg LVOT Diameter2.3 (1.8-2.4cm)Doppler AVA2.51cm2 LEFT VENTRICLE The left ventricle is normal size. There is normal left ventricular wall thickness. The left ventricle function is moderate to severely reduced, LVEF 30-35%. Global hypokinesis. RIGHT VENTRICLE The right ventricle is normal size. The right ventricular systolic function is normal. ATRIA The left atrial size is normal. The right atrium size is normal. MITRAL VALVE The mitral valve is grossly normal. There is no mitral valve regurgitation noted. PULMONIC VALVE The pulmonic valve is not well visualized. There is no pulmonic valvular regurgitation. TRICUSPID VALVE The tricuspid valve is grossly normal. There is trace tricuspid regurgitation. AORTIC VALVE The aortic valve is trileaflet. No aortic regurgitation is present. GREAT VESSELS There is mild aortic root dilatation. PERICARDIAL EFFUSION No significant pericardial effusion. Other Information Quality : Technically LimitedRhythm : Technically limited study due to patient moving. Conclusion The left ventricle is normal size. There is normal left ventricular wall thickness. The left ventricl e function is moderate to severely reduced, LVEF 30-35%. Global hypokinesis. The right ventricular systolic function is normal. The left and right atrial size is normal. No significant valvular abnormalities. There is mild aortic root dilatation. No significant pericardial effusion.
[2024-05-01 01:00] VITALS: BP 121/62; PULSE 77; RESP 17; TEMP 97.5; O2SAT 96
[2024-05-01 05:00] VITALS: BP 117/72; PULSE 97; RESP 17; TEMP 97.3; O2SAT 94
[2024-05-01 06:02] LABS: Basophils # (auto) 0 10 ^3/uL (0-0.2); Basophils % (auto) 0.5 % (0.0-2.0); Eosinophils # (auto) 0.2 10 ^3/uL (0-0.8); Eosinophils % (auto) 3.4 % (0.0-7.0); Hematocrit 41.8 % (41.0-53.0); Lymphocytes # (auto) 1.7 10 ^3/uL (0.4-5.4); Lymphocytes % (auto) 26.3 % (10.0-50.0); Mean Corpuscular Hemoglobin 30.1 pg (28.0-32.0); Mean Corpuscular Hgb Conc. 33.5 g/dL (32.0-36.0); Mean Corpuscular Volume 89.7 fL (80.0-100.0); Monocytes # (auto) 0.5 10 ^3/uL (0-1.3); Monocytes % (auto) 8.3 % (0.0-12.0); Neutrophils # (auto) 3.9 10 ^3/uL (1.6-8.6); Neutrophils % (auto) 61.5 % (37.0-80.0); Platelet Count (auto) 232 10^3/uL (140-450); Red Blood Cells 4.66 10^6/uL (4.5-5.90); Red Cell Distribution Width 14.7 % (11.8-14.3); White Blood Cell 6.3 10^3/uL (4.4-10.8)
[2024-05-01 06:13] LABS: Potassium 4.5 mmol/L (3.5-5.1); Sodium 138 mmol/L (136-145)
[2024-05-01 06:14] LABS: Anion Gap 4 (5-15); Calcium 9.2 mg/dL (8.7-10.4); Carbon Dioxide 27 mmol/L (20-31)
[2024-05-01 06:19] LABS: BUN/Creatinine Ratio 14.3 (10.0-20.0); Blood Urea Nitrogen 15 mg/dL (9-23); Glucose 76 mg/dL (74-106)
[2024-05-01 06:27] LABS: Chloride 107 mmol/L (98-107)
[2024-05-01 08:00] VITALS: PULSE 66; PULSE 67; RESP 19; O2SAT 95
[2024-05-01 08:52] VITALS: BP 111/71; PULSE 66; RESP 19; TEMP 98.1; O2SAT 95
[2024-05-01] MEDS: PANTOPRAZOLE 40 MG/10 ML VIAL INJ IV SCH (09:18)
[2024-05-01 12:52] VITALS: BP 111/82; PULSE 81; RESP 18; TEMP 98.1; O2SAT 94
[2024-05-01] MEDS ORDERED: LISINOPRIL 5 MG TAB PO ONE (13:00)
[2024-05-01] MEDS ORDERED: LISI2.5T47 PO (13:40)
[2024-05-01] MEDS ORDERED: DOXY1CAP57 PO (13:40)
[2024-05-01] MEDS ORDERED: METO25TA5 PO (13:40)
[2024-05-01 13:58] VITALS: BP 111/71; PULSE 66; RESP 19; TEMP 98.1; O2SAT 95
--- NOTE | 2024-05-01 16:29 | DVHDSRES ---
Discharge Summary Date of Admission Resident Creating Document: CORONA QUINONES RESIDENT Apr 29, 2024 at 21:26 Date of Discharge: May 01, 2024 Admitting Diagnosis Possible vasovagal syncope Wounds: No wound was present Labs/Diagnostic Data: Laboratory Results Test 05/01/24 05:35 04/30/24 12:24 04/30/24 12:22 04/30/24 11:49 White Blood Count 6.3 10^3/uL (4.4-10.8) Red Blood Count 4.66 10^6/uL (4.5-5.90) Hemoglobin 14.0 g/dL (13.5-17.5) Hematocrit 41.8 % (41.0-53.0) Mean Corpuscular Volume 89.7 fL (80.0-100.0) Mean Corpuscular Hemoglobin 30.1 pg (28.0-32.0) Mean Corpuscular Hemoglobin Concent 33.5 g/dL (32.0-36.0) Red Cell Distribution Width 14.7 % (11.8-14.3) Platelet Count 232 10^3/uL (140-450) Mean Platelet Volume 9.0 fL (6.9-10.8) Neutrophils (%) (Auto) 61.5 % (37.0-80.0) Lymphocytes (%) (Auto) 26.3 % (10.0-50.0) Monocytes (%) (Auto) 8.3 % (0.0-12.0) Eosinophils (%) (Auto) 3.4 % (0.0-7.0) Basophils (%) (Auto) 0.5 % (0.0-2.0) Neutrophils # (Auto) 3.9 10 ^3/uL (1.6-8.6) Lymphocytes # (Auto) 1.7 10 ^3/uL (0.4-5.4) Monocytes # (Auto) 0.5 10 ^3/uL (0-1.3) Eosinophils # (Auto) 0.2 10 ^3/uL (0-0.8) Basophils # (Auto) 0 10 ^3/uL (0-0.2) Nucleated Red Blood Cells 0.0 % Sodium Level 138 mmol/L (136-145) Potassium Level 4.5 mmol/L (3.5-5.1) Chloride Level 107 mmol/L (98-107) Carbon Dioxide Level 27 mmol/L (20-31) Anion Gap 4 (5-15) Blood Urea Nitrogen 15 mg/dL (9-23) Creatinine 1.05 mg/dL (0.700-1.30) Glomerular Filtration Rate Calc 84 mL/min (>90) BUN/Creatinine Ratio 14.3 (10.0-20.0) Serum Glucose 76 mg/dL (74-106) Calcium Level 9.2 mg/dL (8.7-10.4) Magnesium Level 2.0 mg/dL (1.6-2.6) B-Type Natriuretic Peptide 33.31 pg/mL (0-100) Influenza Type A Antigen Negative (Negative) Influenza Type B Antigen Negative (Negative) SARS-CoV-2 Antigen (Rapid) Negative (NEGATIVE) Urine Color Light-yellow (Yellow) Urine Clarity Clear (Clear) Urine pH 5.5 (5.0-9.0) Urine Specific [place] 1.020 (1.001-1.035) Urine Protein Negative (Negative) Urine Ketones Negative (Negative) Urine Blood Negative /uL (Negative) Urine Nitrite Negative (Negative) Urine Bilirubin Negative (Negative) Urine Urobilinogen Normal mg/dL (Negative) Urine Leukocyte Esterase Negative /uL (Negative) Urine RBC <1 /hpf (0 - 3) Urine Microscopic WBC 1 /HPF (0-3) Urine Squamous Epithelial Cells Few /hpf (<5) Urine Bacteria None seen /hpf (None Seen) Urine Glucose Normal mg/dL (Normal) Urine Opiates Screen Neg (NEGATIVE) Urine Fentanyl Screen Neg (NEGATIVE) Urine Barbiturates Screen Neg (NEGATIVE) Urine Phencyclidine Screen Neg (NEGATIVE) Urine Amphetamines Screen Neg (NEGATIVE) Urine Benzodiazepines Screen Neg (NEGATIVE) Urine Cocaine Screen Neg (NEGATIVE) Urine Cannabinoids Screen Pos (NEGATIVE) Test 04/30/24 01:54 04/29/24 22:20 04/29/24 19:37 04/29/24 19:18 Total Bilirubin < 0.2 mg/dL (0.2-1.0) Aspartate Amino Transferase (AST) 14 U/L (13-40) Alanine Aminotransferase (ALT) 17 U/L (7-40) Alkaline Phosphatase 84 U/L (46-116) Troponin I High Sensitivity 3 ng/L (</=54) Total Protein 6.8 g/dL (5.7-8.2) Albumin 4.5 g/dL (3.2-4.8) Plasma/Serum Blood Alcohol < 3.0 mg/dL (<10) Prothrombin Time 10.9 sec (9.3-11.8) Prothrombin Time INR 1.03 (0.9-1.15) Lactic Acid Level 1.0 mmol/L (0.4-2.0) Direct Bilirubin < 0.1 mg/dL (<0.3) POC Glucose 107 mg/dl (70-106) D-Dimer, Quantitative 0.20 mg/L FEU (0.0-0.49) Other Laboratory Tests 05/01/24 05:35 Brief Hx & Hospital Course: This is a 54-year-old male with past medical history of atrial fibrillation, schizoaffective disorder, depression, dyslipidemia, CVA, 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 The patient presented to the ED with chief complaint of loss of consciousness at home x3. The patient explained that he wants to the bathroom and he was looking at the mirror and started feeling hot sensation in his body with nausea, vomiting and tunnel vision that became dark following by syncopal event. The patient states that the son was there and heard noises in the bathroom and went to help him. The patient states that when he recovered he could remember every aspect of the episode. Upon admission, the patient denied fever, chest pain, abdominal pain or any other recent complaints at that time. Apparently on admission the patient was describing paranoid thoughts but on my examination the patient was providing a clear history. The patient was admitted for further assessment and management of syncopal episode. Hospital course: EKG was reviewed which was showing atrial fibrillation on rate control and troponin were unremarkable. Head CT was negative for acute intracranial abnormality .The patient is currently taking apixaban 5 mg b.i.d. Chest xray showed Rt lower lobe atelectasis or pneumonia and patient was treated with IV ceftriaxone 1 g daily, IV azithromycin 500 mg daily. Echo revealed EF 30-35%, newly diagnosed systolic heart failure but patient did not have any cardiacr symptoms in terms of chest pain, shortness of breath, palpitation and no further inpatient work up was done. we started metoprolol tartrate 12.5 mg b.i.d., lisinopril 5 mg and discontinue diltiazem 240 mg and continue all other home meds. Discharge plan was discussed with the patient and all questions were answered. Patient is being discharged to home. Discharge Plan: Disposition: Home Medications : metoprolol tartrate 12.5 mg b.i.d., lisinopril 5 mg daily and doxycycline 100 mg, 1 cap b.i.d. for 5 days. Follow up : DC clinic in 1 week Cardiology in 1 to 2 weeks for further workup of newly diagnosed systolic heart failure Consults/Reason for consult No consultation was done Operations or Procedures EXAM: XR Chest, 2 Views CLINICAL INDICATION: cp TECHNIQUE: Frontal and lateral views of the chest. COMPARISON: XY CHEST TWO VIEWS ROUTINE on DOS: 09/28/23 FINDINGS: LUNGS AND PLEURAL SPACES: Right lower lobe atelectasis or pneumonia. No pneumothorax. HEART: Unremarkable. No cardiomegaly. MEDIASTINUM: Unremarkable. Normal mediastinal contour. BONES/JOINTS: Unremarkable. No acute fracture. OTHER FINDINGS: . . IMPRESSION: Right lower lobe atelectasis or pneumonia. CT BRAIN WITHOUT CONTRAST HISTORY: syncope TECHNIQUE: Axial scans were obtained from the skull base through the vertex without contrast. Sagittal and coronal reformats were generated. One or more of the following radiation dose reduction techniques were used for this examination: automated exposure control, adjustment of the mA and/or kV according to patient size, use of iterative reconstruction technique. COMPARISON: CT HEAD WITHOUT CONTRAST on DOS: 09/28/23 FINDINGS: Streak and motion artifact limit evaluation. As visualized no definite acute intracranial hemorrhage or evidence of large vessel territorial infarction is identified at this time. No midline shift. The basilar cisterns are patent. Mucosal thickening in the left maxillary sinus. The mastoid air cells are clear. No grossly displaced calvarial fracture is identified. IMPRESSION: No definite acute intracranial findings as visualized. If there is persistent clinical concern, short-term interval follow-up may be considered to re- evaluate. EXAM: Two-dimensional and M-mode echocardiogram with Doppler and color Doppler. Blood Pressure: 112/88 mmHg INDICATION Syncope hs of a Fib RISK FACTORS Obesity: Height: 6'0, Weight: 268 DIMENSIONS LVDd 5.1 (3.8-5.7cm) LA (2D) 4.2 (1.9-4.0cm) Aortic Root 4.0 (2.0- 3.7cm) LVDs 3.8 (2.5-4.0cm) LA (MM) (1.9-4.0cm) Aortic Cusp Exc 2.2 (1.5- 2.0cm) EF (%) 50.0 (55-70%) Rt. Atrium 4.1 (1.9-4.0cm) Asc. Aorta 3.4 cm IVSd 0.9 (0.7-1.1cm) RV (D) 4.2 (1.8-2.4cm) PWd 1.0 (0.7-1.1cm) Mitral Valve Mitral Mitral Stenosis E wave 0.79m/s MV Mean GR. 2mmHg A wave m/s MV Peak GR. 5mmHg E/A ratio 0.0 2D MVA cm2 DECEL Time 195ms PRESS 1/2 Time ms Aortic Valve Aortic Valve Aortic Stenosis V1 0.64m/s AO Mean GR. 2mmHg V2 1.06m/s AO Peak GR. 5mmHg LVOT Diameter 2.3 (1.8-2.4cm) Doppler RIVERA 2.51cm2 LEFT VENTRICLE The left ventricle is normal size. There is normal left ventricular wall thickness. The left ventricle function is moderate to severely reduced, LVEF 30-35%. Global hypokinesis. RIGHT VENTRICLE The right ventricle is normal size. The right ventricular systolic function is normal. ATRIA The left atrial size is normal. The right atrium size is normal. MITRAL VALVE The mitral valve is grossly normal. There is no mitral valve regurgitation noted. PULMONIC VALVE The pulmonic valve is not well visualized. There is no pulmonic valvular regurgitation. TRICUSPID VALVE The tricuspid valve is grossly normal. There is trace tricuspid regurgitation. AORTIC VALVE The aortic valve is trileaflet. No aortic regurgitation is present. GREAT VESSELS There is mild aortic root dilatation. PERICARDIAL EFFUSION No significant pericardial effusion. Other Information Quality : Technically Limited Rhythm : Technically limited study due to patient moving. Conclusion The left ventricle is normal size. There is normal left ventricular wall thickness. The left ventricle function is moderate to severely reduced, LVEF 30- 35%. Global hypokinesis. The right ventricular systolic function is normal. The left and right atrial size is normal. No significant valvular abnormalities. There is mild aortic root dilatation. No significant pericardial effusion. No definite acute intracranial findings as visualized. If there is persistent clinical concern, short-term interval follow-up may be considered to re- evaluate. Condition at Discharge: Guarded Final Diagnosis/Problems List Syncopal episode likely secondary to autonomic instability/medication induce Newly diagnosed chronic systolic heart failure (HFrEF 30 -35%) Atrial fibrillation with secondary hypercoagulability state Possible right lower lobe Gram-positive, Gram-negative bacterial pneumonia History of schizoaffective disorder History of cervical spine osteoarthritis with cervical fusion Discharge Disposition: Home Discharge Instruct/Medications Diet: Cardiac 2g Na,low cholest Activity: No Restrictions, As Tolerated Follow Up/Referral: Follow up with DC clinic in 1 week Follow up with Cardiology in 1 to 2 weeks Medications: As per EMR Discharge Statement: "Patient was advised to return to the ER or call 911 if any headaches, dizziness, shortness of breath, chest pain, abdominal pain, bleeding, fevers, or worsening of medical condition. Patient was counseled about treatment plan, medications, possible side effects, patientverbalized understanding. All questions were answered to the best of my ability. This discharge took greater then 30 minutes in planning, reviewing documentation, counseling the patient, and discussing with other team members." ASSESSMENT ASSESSMENT Assessment Syncopal episode likely secondary to autonomic instability/medication induced Newly diagnosed systolic heart failure (HFrEF 30 -35%) Atrial fibrillation with secondary hyperqu Possible right lower lobe Gram-positive, Gram-negative bacterial pneumonia History of schizoaffective disorder History of cervical spine osteoarthritis with cervical fusion CORONA QUINONES RESIDENT May 01, 2024 16:29
[2024-05-01] MEDS ORDERED: METOPROLOL TARTRATE 25 MG TAB PO SCH (22:00)
[2024-05-02] MEDS ORDERED: PANTOPRAZOLE 40 MG TAB PO SCH (06:00)
[2024-05-02] MEDS ORDERED: LISINOPRIL 5 MG TAB PO SCH (10:00)
--- NOTE | 2024-05-02 11:33 | ECG ---
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
== END 2024-05-01 14:50 | disposition home or self-care (01) | DRG 73 ==
LOC: ER 18:58 → TELE 21:26 → TELE-CENTR 04-30 21:58
PROVIDERS: ATTEND Emergency Medicine
DX: G90.89 Other disorders of autonomic nervous system (principal); J15.69 Pneumonia due to other Gram-negative bacteria; J15.9 Unspecified bacterial pneumonia; D68.69 Other thrombophilia; I50.22 Chronic systolic (congestive) heart failure; Z20.822 Contact with and (suspected) exposure to COVID-19; I48.91 Unspecified atrial fibrillation; F25.9 Schizoaffective disorder, unspecified; E78.5 Hyperlipidemia, unspecified; K21.9 Gastro-esophageal reflux disease without esophagitis; Z86.73 Personal history of transient ischemic attack (TIA), and cerebral infarction without residual deficits; Z79.899 Other long term (current) drug therapy
CPT/HCPCS: 36415; 70450; 71046; 80048; 80053; 80076; 80307; 80320; 81001; 82962; 83605; 83735; 83880; 84484; 85025; 85379; 85610; 87081; 87426; 87804; 93005; 93306; 97163; 99291; G0378; J2405; J2470

== ENCOUNTER 2024-05-13 14:16 | Inpatient (IN) | payer MEDICARE, MEDICAID ==
[~2024-05-13] VITALS: Ht 182.9 cm; Wt 115.1 kg
[~2024-05-13 14:16] MED LIST changes: -CEPH500C PO; -DILT-29 PO; +DOXY1CAP57 PO; +LISI2.5T47 PO; +METO25TA5 PO; -WARF-66 PO
--- NOTE | 2024-05-13 14:59 | ECG ---
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
--- NOTE | 2024-05-13 15:13 | DVH ---
CHEST RADIOGRAPH Indication: SOB Technique: Single frontal view of the chest was obtained Comparison: XY CHEST PORTABLE on DOS: 04/29/2024 FINDINGS: Lines and Tubes: None Lungs: Interval decrease in right lower lobe opacity . Pleura: No effusion.No pneumothorax. Cardiomediastinal contours: Unremarkable Pulmonary vasculature: Within normal limits. Bones: No acute osseous abnormality. IMPRESSION: 1. . Interval decrease in right lower lobe opacity may represent residual airspace disease versus ate lectasis. HS:Y
[2024-05-13 15:21] VITALS: PULSE 70; RESP 18; O2SAT 97
[2024-05-13 15:40] LABS: Basophils # (auto) 0 10 ^3/uL (0-0.2); Basophils % (auto) 0.5 % (0.0-2.0); Eosinophils # (auto) 0.1 10 ^3/uL (0-0.8); Eosinophils % (auto) 0.8 % (0.0-7.0); Hemoglobin 16.9 g/dL (13.5-17.5); Lymphocytes # (auto) 1.8 10 ^3/uL (0.4-5.4); Lymphocytes % (auto) 23.8 % (10.0-50.0); Mean Corpuscular Hemoglobin 29.7 pg (28.0-32.0); Mean Corpuscular Hgb Conc. 33.1 g/dL (32.0-36.0); Mean Corpuscular Volume 89.9 fL (80.0-100.0); Monocytes # (auto) 0.6 10 ^3/uL (0-1.3); Monocytes % (auto) 8.3 % (0.0-12.0); Neutrophils # (auto) 5.1 10 ^3/uL (1.6-8.6); Neutrophils % (auto) 66.6 % (37.0-80.0); Nucleated Red Blood Cells % 0.1 %; Platelet Count (auto) 236 10^3/uL (140-450); Red Blood Cells 5.67 10^6/uL (4.5-5.90); Red Cell Distribution Width 14.4 % (11.8-14.3); White Blood Cell 7.6 10^3/uL (4.4-10.8)
[2024-05-13 15:45] LABS: Chloride 105 mmol/L (98-107); Potassium 4.1 mmol/L (3.5-5.1); Sodium 137 mmol/L (136-145)
[2024-05-13 15:46] LABS: Anion Gap 7 (5-15); Calcium 10.4 mg/dL (8.7-10.4); Carbon Dioxide 25 mmol/L (20-31)
[2024-05-13 15:48] LABS: COVID19 ANTIGEN SOFIA FIA NEGATIVE (NEGATIVE); Rapid Influenza A Negative (Negative); Rapid Influenza B Negative (Negative)
[2024-05-13 15:51] LABS: BUN/Creatinine Ratio 19.8 (10.0-20.0); Blood Urea Nitrogen 21 mg/dL (9-23); Glucose 86 mg/dL (74-106)
--- NOTE | 2024-05-13 16:05 | ED.PDOC ---
History of Present Illness HPI Comments 54 y/o M, with a Hx of AFIB, CHF, CVA, GERD, HLD, cervical spine osteoarthritis with cervical fusion, schizoaffective disorder, depression, and obesity, presents with c/o shortness of breath, poor appetite, diaphoresis, fatigue, and generalized weakness, today. Patient is a poor historian and endorses on having multiple chronic complaints, such as being short of breath for a year, in addition to recent loss of appetite and diaphoresis. He denies having any chest pain, palpitations, cough, congestion, fever, chills, or other associated symptoms or modifiers at this time. Chief Complaint: Shortness of Breath Time Seen by MD: 14:45 Primary Care Provider: RONNA Reviewed Notes: Nurses Notes, Medications, Allergies Allergies: Coded Allergies: Codeine (Verified Allergy, Mild, 09/29/23) patients states codeine makes him vomit Home Meds Active Scripts Doxycycline Monohydrate (Doxycycline Monohydrate) 100 Mg Cap, 1 CAP PO BID for 5 Days, #10 CAP Prov:CORONA QUINONES RESIDENT 05/01/24 Lisinopril (Lisinopril) 2.5 Mg Tab, 2 TAB PO DAILY for 30 Days, #60 TAB 5 Refills Prov:CORONA QUINONES RESIDENT 05/01/24 Metoprolol Tartrate (Metoprolol Tartrate) 25 Mg Tab, 0.5 TAB PO BID for 30 Days, #30 TAB 1 Refill Prov:CORONA QUINONES RESIDENT 05/01/24 Pantoprazole Sodium Sesquihydr (Pantoprazole Sodium) 40 Mg Tab, 40 MG PO DAILY, #30 TAB Prov:MATEO HOLLEY MD 07/14/23 Reported Medications Ergocalciferol (Vitamin D) 50,000 Unit Cap, 1 CAP PO QWEEKLY 09/29/23 Benztropine Mesylate (Benztropine Mesylate) 1 Mg Tab, 1 TAB PO BID 09/29/23 Vortioxetine Hydrobromide (Trintellix) 20 Mg Tab, 1 TAB PO HS 09/29/23 Lubiprostone (Amitiza) 24 Mcg Cap, 1 CAP PO DAILY 09/29/23 Oxycodone W/ Acetaminophen (Apap/Oxycodone) 1 Tab Tab, 1 TAB PO Q8HR [10/325 mg] 09/29/23 Sertraline Hcl (Sertraline Hcl) 100 Mg Tab, 1 TAB PO BID 09/29/23 Baclofen (Baclofen) 10 Mg Tab, 1 TAB PO TID 09/29/23 Morphine Sulfate (Morphine Sulfate Cr) 30 Mg Tab, 1 TAB PO BID 09/29/23 Brexpiprazole (Rexulti) 4 Mg Tab, 1 TAB PO DAILY 09/28/23 Pregabalin (Pregabalin) 150 Mg Cap, 1 CAP PO BID 09/28/23 Information Source: Patient Mode of Arrival: Ambulatory Severity: Moderate Timing: Other (see HPI) Duration: Other (see HPI) Prehospital treatment: None Past Medical History PAST MEDICAL HISTORY: AFIB, Arthritis (cervical spine osteoarthritis with cervical fusion ), CHF, CVA, Depression, GERD, High Lipids, Schizophrenia (schizoaffective disorder) Past Medical History (Other): chronic back pain, obesity Surgical History (Other): cervical spine degenerative disease status post surgery with fusion of C4-5 and C5-6) Family History Family History: Unknown Social History Smoker: Non-Smoker Alcohol: Denies ETOH Use Drugs: Marijuana Lives In: Home Constitutional: reports: diaphoresis, fatigue Respiratory: reports: shortness of breath Gastrointestinal: reports: poor appetite Neurological: reports: weakness All Other Systems: Reviewed and Negative (negative unless otherwise stated above or in HPI) Physical Exam General Appearance: No Apparent Distress, Obese HEENT: Normal ENT Inspection, Pharynx Normal, TMs Normal Neck: Full Range of Motion, Non-Tender, Normal, Normal Inspection Respiratory: Chest Non-Tender, Lungs Clear, No Accessory Muscle Use, No Respiratory Distress, Normal Breath Sounds Cardiovascular: No Edema, No JVD, No Murmur, No Gallop, Normal Peripheral Pulses, Regular Rate/Rhythm Breast Exam: Deferred Gastrointestinal: No Organomegaly, Non Tender, No Pulsatile Mass, Normal Bowel Sounds, Soft Genitalia: Deferred Pelvic: Deferred Rectal: Deferred Extremities: No calf tenderness, Normal capillary refill, Normal inspection, Normal range of motion, Non-tender, No pedal edema Musculoskeletal : Apperance: Normal Neurologic: Alert, centrifugal casting machine tender II-XII nml as Tested, No Motor Deficits, Normal Affect, Normal Mood, No Sensory Deficits Cerebellar Function: Normal Reflexes: Normal Skin: Diaphoresis, Normal Color, Warm Lymphatic: No Adenopathy Was a procedure done? Was a procedure done?: No EKG EKG : Pulse Rate (adult): 84 [place]: Normal Cardiac Rhythm: Afib Block: None Hypertrophy: None ST: Normal Comments RSR in V1/V2 Differential Dx Considerations may include: URI, viral syndrome, bronchitis, PNA, covid19, pleural effusions, influenza, CHF exacerbation, KS, anginal equivalent X-Ray, Labs, Meds, VS Vital Signs Date Time Temp Pulse Resp B/P (MAP) Pulse Ox O2 Delivery O2 Flow Rate FiO2 05/13/24 16:05 84 05/13/24 15:21 70 18 97 Room Air* 0 21 05/13/24 15:20 98.0 70 18 124/84 (97) 97 98.0 05/13/24 14:51 84 05/13/24 14:30 98.1 96 20 170/105 (126) 96 133/69 (90) Lab Test 05/13/24 14:58 05/13/24 00:00 Range/Units White Blood Count 7.6 4.4-10.8 10^3/uL Red Blood Count 5.67 4.5-5.90 10^6/uL Hemoglobin 16.9 13.5-17.5 g/dL Hematocrit 51.0 41.0-53.0 % Mean Corpuscular Volume 89.9 80.0-100.0 fL Mean Corpuscular Hemoglobin 29.7 28.0-32.0 pg Mean Corpuscular Hemoglobin Concent 33.1 32.0-36.0 g/dL Red Cell Distribution Width 14.4 H 11.8-14.3 % Platelet Count 236 140-450 10^3/uL Mean Platelet Volume 9.7 6.9-10.8 fL Neutrophils (%) (Auto) 66.6 37.0-80.0 % Lymphocytes (%) (Auto) 23.8 10.0-50.0 % Monocytes (%) (Auto) 8.3 0.0-12.0 % Eosinophils (%) (Auto) 0.8 0.0-7.0 % Basophils (%) (Auto) 0.5 0.0-2.0 % Neutrophils # (Auto) 5.1 1.6-8.6 10 ^3/uL Lymphocytes # (Auto) 1.8 0.4-5.4 10 ^3/uL Monocytes # (Auto) 0.6 0-1.3 10 ^3/uL Eosinophils # (Auto) 0.1 0-0.8 10 ^3/uL Basophils # (Auto) 0 0-0.2 10 ^3/uL Nucleated Red Blood Cells 0.1 % Sodium Level 137 136-145 mmol/L Potassium Level 4.1 3.5-5.1 mmol/L Chloride Level 105 98-107 mmol/L Carbon Dioxide Level 25 20-31 mmol/L Anion Gap 7 5-15 Blood Urea Nitrogen 21 9-23 mg/dL Creatinine 1.06 0.700-1.30 mg/dL Glomerular Filtration Rate Calc 83 >90 mL/min BUN/Creatinine Ratio 19.8 10.0-20.0 Serum Glucose 86 74-106 mg/dL Calcium Level 10.4 8.7-10.4 mg/dL Troponin I High Sensitivity < 3 L </=54 ng/L B-Type Natriuretic Peptide 19.27 0-100 pg/mL Influenza Type A Antigen Negative Negative Influenza Type B Antigen Negative Negative SARS-CoV-2 Antigen (Rapid) Negative NEGATIVE [place] [id number] Ph: [phone] DIAGNOSTIC IMAGING Diagnostic Imaging Report : [id number] Signed PATIENT: ISSA IVEY ACCT: [id number] UNIT: [id number] : 1970 LOC: ER ROOM / BED: / AGE / SEX: 54 / M ADM STATUS: REG ER SERVICE [id number] ORDERING PHYSICIAN: SERGIO GUZMÁN MD PROCEDURE(s): CXRP - CHEST PORTABLE REASON: SOB ORDER NUMBER(s): [id number], ACCESSION NUMBER(s): [id number] CHEST RADIOGRAPH Indication: SOB Technique: Single frontal view of the chest was obtained Comparison: XY CHEST PORTABLE on DOS: 04/29/2024 FINDINGS: Lines and Tubes: None Lungs: Interval decrease in right lower lobe opacity . Pleura: No effusion.No pneumothorax. Cardiomediastinal contours: Unremarkable Pulmonary vasculature: Within normal limits. Bones: No acute osseous abnormality. IMPRESSION: 1. . Interval decrease in right lower lobe opacity may represent residual airspace disease versus atelectasis. HS:Y ATED BY: JOSSE TAPIA MD DICTATED DATE/TIME: 05/13/241510 SIGNED BY: JOSSE TAPIA MD SIGNED DATE/TIME: 05/13/241510 CC: Time of 1ST Reevaluation: 15:15 Reevaluation 1ST: Unchanged Patient Education/Counseling: Diagnosis, Treatment, Prognosis, Need For Follow Up Family Education/Counseling: No Family Present Additional Information - I reviewed the following notes from patient's past medical encounters: ED physician notes on 09/28/23 and 04/29/24 and hospital admission discharge summary report on 10/01/23 and 05/01/24. - The following tests were ordered, and results were reviewed by me: rapid influenza A&B and Covid19 antigen tests, EKG, BMP, CBC, BNP, troponin, CXR - I reviewed and agreed with the following test results read by other provider: CXR - I discussed treatments and results with medical personnel pt is confused, a poor historian, with reports of dyspnea, and was diaphoretic. i am concerned about anginal equivalent. pt will be admitted for further eval uation Departure 1 Departure Time of Disposition: 17:33 Impression: Primary Impression: Anginal equivalent Disposition: ADMITTED INPATIENT Admit to: Tele Condition: Serious Discharged With: Self Critical Care Note Critical Care Time?: Yes (55 min-critical care time only) Critical care comment: due to concerns for deterioration of patient's condition, the care required my highest level of attention and readiness. i assessed the patient's condition, reviewed relavent documents, communicated with medical personnel, ordered the proper tests and treatments, reassessed for results and response to treatments, spoke to family and consultants and formulated a plan of care Stability Stability form required: No Heart Score Heart Score: Heart Score Response (Comments) Value History Highly Suspicious 2 EKG Repolarization Disturb 1 Age 45-64 1 Risk Factors >3 or Hx ASHD 2 Troponin 1-2 x's Normal limit 1 Total 7 I personally scribed for SERGIO GUZMÁN MD ([email or web address]) on 05/13/24 at 16:05. Electronically submitted by Carlos A Warren ([email or web address]). I personally scribed for SERGIO GUZMÁN MD ([email or web address]) on 05/13/24 at 16:06. Electronically submitted by Carlos A Warren ([email or web address]). SERGIO GUZMÁN MD May 13, 2024 16:05
[2024-05-13 22:35] LABS: Basophils # (auto) 0.1 10 ^3/uL (0-0.2); Basophils % (auto) 0.7 % (0.0-2.0); Eosinophils # (auto) 0.1 10 ^3/uL (0-0.8); Eosinophils % (auto) 1.2 % (0.0-7.0); Hematocrit 47.2 % (41.0-53.0); Lymphocytes # (auto) 2.1 10 ^3/uL (0.4-5.4); Lymphocytes % (auto) 26.2 % (10.0-50.0); Mean Corpuscular Hemoglobin 29.6 pg (28.0-32.0); Mean Corpuscular Hgb Conc. 33.8 g/dL (32.0-36.0); Mean Corpuscular Volume 87.6 fL (80.0-100.0); Monocytes # (auto) 0.6 10 ^3/uL (0-1.3); Monocytes % (auto) 7.9 % (0.0-12.0); Neutrophils # (auto) 5.2 10 ^3/uL (1.6-8.6); Nucleated Red Blood Cells % 0.1 %; Platelet Count (auto) 225 10^3/uL (140-450); Red Blood Cells 5.39 10^6/uL (4.5-5.90); White Blood Cell 8.1 10^3/uL (4.4-10.8)
[2024-05-13] MEDS: APIXABAN 5 MG TAB PO SCH (22:37)
[2024-05-13 23:04] LABS: Alanine Aminotransferase 19 U/L (7-40); Albumin 4.8 g/dL (3.2-4.8); Alkaline Phosphatase 73 U/L (46-116); Anion Gap 8 (5-15); Aspartate Aminotransferase 17 U/L (13-40); BUN/Creatinine Ratio 18.8 (10.0-20.0); Blood Urea Nitrogen 21 mg/dL (9-23); CRP High Sensitivity 0.07 mg/dL (<1.0); Carbon Dioxide 24 mmol/L (20-31); Chloride 107 mmol/L (98-107); Creatine Kinase IFCC 110 U/L (46-171); Glucose 123 mg/dL (74-106); Potassium 3.8 mmol/L (3.5-5.1); Sodium 139 mmol/L (136-145); Total Protein 7.2 g/dL (5.7-8.2)
[2024-05-13 23:05] LABS: Bilirubin, Total 0.3 mg/dL (0.2-1.0)
[2024-05-13 23:13] LABS: Erythrocyte Sedimentation Rate 4 mm/hr (0-20)
--- NOTE | 2024-05-14 02:27 | DVHHPRES ---
History of Present Illness Resident Creating Document: TUAN PHILIP RESIDENT Reason for Visit: SOB History of Present Illness This is a 54-year-old male with a history of atrial fibrillation, congestive heart failure (EF 30-35%), cerebrovascular accident, gastroesophageal reflux disease (GERD), schizoaffective disorder, depression, hyperlipidemia, obesity, and cervical spine osteoarthritis with surgical fusion at C4-C6, who presents with complaints of shortness of breath, generalized pain (shoulders, neck), fatigue, diaphoresis, and poor appetite. The patient describes his shortness of breath as intermittent, stating that it "comes and goes" rather than being a constant issue. He denies orthopnea, chest pain, palpitations, cough, congestion, or fever. He is a poor historian and endorses having multiple chronic complaints. Patient was previously admitted due to syncope and pneumonia. DC a week ago Past Medical History: Cardiovascular: Atrial fibrillation, congestive heart failure (EF 30-35%) Neurologic: Cerebrovascular accident (CVA) Gastrointestinal: GERD Psychiatric: Schizoaffective disorder, depression Metabolic: Hyperlipidemia, obesity Musculoskeletal: Cervical spine osteoarthritis with cervical fusion Past Surgical History: Cervical spine degenerative disease status post fusion of C4-C5 and C5-C6 Review of Systems Constitutional: No: Fever, Chills, Sweats, Weakness, Malaise, Other Eyes: No: Pain, Vision change, Conjunctivae inflammation, Eyelid inflammation, Other, Redness ENT: No: Ear pain, Ear discharge, Nose pain, Nose discharge, Nose congestion, Mouth pain, Mouth swelling, Throat pain, Throat swelling, Other Respiratory: Shortness of breath Gastrointestinal: No: Nausea, Vomiting, Abdominal Pain, Diarrhea, Constipation, Melena, Hematochezia, Other Genitourinary: No Dysuria, No Frequency, No Incontinence, No Hematuria, No Retention, No Other Musculoskeletal: No: other, neck pain, shoulder pain, arm pain, back pain, hand pain, leg pain, foot pain Skin: No: Rash, Lesions, Jaundice, Bruising, Other Neurological: No: Weakness, Numbness, Incoordination, Change in speech, Confusion, Seizures, Other Allergies: Coded Allergies: Codeine (Verified Allergy, Mild, 09/29/23) patients states codeine makes him vomit Medications Current Medications Medications Dose Ordered Sig/Demian Route Start Time Stop Time Status Last Admin Dose Admin Apixaban 5 mg BID PO 05/13/24 22:00 05/13/24 22:37 5 MG Lisinopril 5 mg DAILY PO 05/14/24 10:00 Metoprolol Succinate 25 mg DAILY PO 05/14/24 10:00 Atorvastatin Calcium 20 mg DAILY PO 05/14/24 10:00 Oxycodone/ Acetaminophen 1 tab Q6HPRN PRN PO 05/13/24 23:15 Exam Vital Signs Vital Signs Date Time Temp Pulse Resp B/P (MAP) Pulse Ox O2 Delivery O2 Flow Rate FiO2 05/13/24 22:50 Room Air* 0 21 05/13/24 22:38 97.7 88 19 108/79 (89) 96 97.7 General Appearance: Alert, Oriented X3, Cooperative HEENT: Atraumatic, PERRLA, EOMI, Mucous membr. moist/pink Respiratory: Clear to auscultation, Normal air movement Cardiovascular: Regular rate, Normal S1, Normal S2 Abdominal: Normal bowel sounds, Soft Extremities: No clubbing, No cyanosis, No edema Skin: No rashes, No breakdown, No significant lesion Neuro: Normal speech Psych/Mental Status: Mental status NL, Mood NL, Other Labs/Xrays Labs Test 05/13/24 22:08 05/13/24 14:58 05/13/24 00:00 Range/Units White Blood Count 8.1 4.4-10.8 10^3/uL Red Blood Count 5.39 4.5-5.90 10^6/uL Hemoglobin 16.0 13.5-17.5 g/dL Hematocrit 47.2 41.0-53.0 % Mean Corpuscular Volume 87.6 80.0-100.0 fL Mean Corpuscular Hemoglobin 29.6 28.0-32.0 pg Mean Corpuscular Hemoglobin Concent 33.8 32.0-36.0 g/dL Red Cell Distribution Width 14.0 11.8-14.3 % Platelet Count 225 140-450 10^3/uL Mean Platelet Volume 9.7 6.9-10.8 fL Neutrophils (%) (Auto) 64.0 37.0-80.0 % Lymphocytes (%) (Auto) 26.2 10.0-50.0 % Monocytes (%) (Auto) 7.9 0.0-12.0 % Eosinophils (%) (Auto) 1.2 0.0-7.0 % Basophils (%) (Auto) 0.7 0.0-2.0 % Neutrophils # (Auto) 5.2 1.6-8.6 10 ^3/uL Lymphocytes # (Auto) 2.1 0.4-5.4 10 ^3/uL Monocytes # (Auto) 0.6 0-1.3 10 ^3/uL Eosinophils # (Auto) 0.1 0-0.8 10 ^3/uL Basophils # (Auto) 0.1 0-0.2 10 ^3/uL Nucleated Red Blood Cells 0.1 % Erythrocyte Sedimentation Rate 4 0-20 mm/hr Sodium Level 139 136-145 mmol/L Potassium Level 3.8 3.5-5.1 mmol/L Chloride Level 107 98-107 mmol/L Carbon Dioxide Level 24 20-31 mmol/L Anion Gap 8 5-15 Blood Urea Nitrogen 21 9-23 mg/dL Creatinine 1.12 0.700-1.30 mg/dL Glomerular Filtration Rate Calc 78 >90 mL/min BUN/Creatinine Ratio 18.8 10.0-20.0 Serum Glucose 123 H 74-106 mg/dL Calcium Level 10.0 8.7-10.4 mg/dL Total Bilirubin 0.3 0.2-1.0 mg/dL Aspartate Amino Transferase (AST) 17 13-40 U/L Alanine Aminotransferase (ALT) 19 7-40 U/L Alkaline Phosphatase 73 46-116 U/L Creatine Kinase 110 46-171 U/L C-Reactive Protein High Sensitivity 0.07 <1.0 mg/dL Total Protein 7.2 5.7-8.2 g/dL Albumin 4.8 3.2-4.8 g/dL Thyroid Stimulating Hormone (TSH) 2.37 0.55-4.78 uIU/mL Troponin I High Sensitivity < 3 L </=54 ng/L B-Type Natriuretic Peptide 19.27 0-100 pg/mL Influenza Type A Antigen Negative Negative Influenza Type B Antigen Negative Negative SARS-CoV-2 Antigen (Rapid) Negative NEGATIVE Assessment/Plan Assessment/Plan #Hypertensive urgency at admission #Newly diagnosed CHF (EF 30-35%) #Atrial fibrillation w/o RVR #Generalized pain (shoulders, neck, back) #Schizoaffective disorder #Depression #Hyperlipidiemia #GERD ECHO: The left ventricle is normal size. There is normal left ventricular wall thickness. The left ventricle function is moderate to severely reduced, LVEF 30- 35%. Global hypokinesis. The right ventricular systolic function is normal. The left and right atrial size is normal. No significant valvular abnormalities. There is mild aortic root dilatation. No significant pericardial effusion. Admit med/surg Start GMDT: spironolactone, jardiance Resume home meds: lisinopril, apixaban, metoprolol, atorvastatin Pneumonia: resolved: no SIRS at admission, SpO2 normal: no need of AB, radiographic findings are improving Continue Percocet and pregabalin Check inflammatory markers Consider further work up on new onset HF: no acute exacerbation Case discussed with Dr Springer Time spent on care 23 min Plan discussed with: Patient, Other My Orders Orders - TUAN PHILIP RESIDENT Procedure Category Date Status Time Apixaban (Eliquis) PHA 05/13/24 In Process 22:00 Admit ADMIT 05/13/24 Transmitted 21:43 Lisinopril Tablet PHA 05/14/24 In Process (Zestril Tablet) 10:00 Metoprolol Xl PHA 05/14/24 In Process Succinate (Toprol Xl) 10:00 Atorvastatin (Lipitor) PHA 05/14/24 In Process 10:00 Cardiac DIET 05/14/24 Transmitted Diet-2gna,Lofat,Lochol Breakfast Oxycodone W/ Acet PHA 05/13/24 In Process 5/325mg Tab (Percocet 23:15 * 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
[2024-05-14] MEDS: OXYCODONE W/ ACETAMINOPHEN 5/325MG TABLET PO PRN ×2 (02:36→20:27)
[2024-05-14] MEDS ORDERED: PREG150C PO (03:15)
[2024-05-14] MEDS: PANTOPRAZOLE 40 MG/10 ML VIAL INJ IV SCH (04:47)
[2024-05-14] MEDS: PREGABALIN CAPSULE 75 MG CAP PO SCH (04:47)
[2024-05-14 05:55] LABS: Urine Bacteria None Seen /hpf (None Seen)
[2024-05-14 06:05] LABS: Urine Blood Negative /uL (Negative); Urine Clarity Clear (Clear); Urine Color Light-Yellow (Yellow); Urine Protein, UAD Negative (Negative); Urine Squamous Epithelial Cell None Seen /hpf (<5); Urine Urobilinogen Normal (Negative); Urine WBC 1 /HPF (0-3); Urine pH 5.5 (5.0-9.0)
[2024-05-14 06:20] LABS: Opiate Scree,Urine Neg (NEGATIVE)
[2024-05-14 06:21] LABS: Cannabinoid Screen, Urine Pos (NEGATIVE)
[2024-05-14 06:22] LABS: Amphetamine Screen, Urine Neg (NEGATIVE); Barbiturate Scree,Urine Neg (NEGATIVE); Benzodiazephine Screen, Urine Neg (NEGATIVE); Cocaine Screen, Urine Neg (NEGATIVE); Phencyclidine Screen, Urine Neg (NEGATIVE)
[2024-05-14 08:00] VITALS: PULSE 74; PULSE 95; RESP 18
--- NOTE | 2024-05-14 08:48 | ECG ---
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
[2024-05-14 09:00] VITALS: BP 121/81; PULSE 95; RESP 18; TEMP 97.6; O2SAT 99
[2024-05-14 09:29] LABS: Basophils # (auto) 0 10 ^3/uL (0-0.2); Basophils % (auto) 0.7 % (0.0-2.0); Eosinophils # (auto) 0.1 10 ^3/uL (0-0.8); Eosinophils % (auto) 2.5 % (0.0-7.0); Hemoglobin 15.3 g/dL (13.5-17.5); Lymphocytes # (auto) 1.6 10 ^3/uL (0.4-5.4); Lymphocytes % (auto) 26.5 % (10.0-50.0); Mean Corpuscular Hgb Conc. 33.9 g/dL (32.0-36.0); Mean Corpuscular Volume 88.5 fL (80.0-100.0); Monocytes # (auto) 0.5 10 ^3/uL (0-1.3); Monocytes % (auto) 8.6 % (0.0-12.0); Neutrophils # (auto) 3.6 10 ^3/uL (1.6-8.6); Neutrophils % (auto) 61.7 % (37.0-80.0); Nucleated Red Blood Cells % 0.4 %; Platelet Count (auto) 214 10^3/uL (140-450); Red Blood Cells 5.09 10^6/uL (4.5-5.90); Red Cell Distribution Width 14.6 % (11.8-14.3); White Blood Cell 5.9 10^3/uL (4.4-10.8)
[2024-05-14 09:48] LABS: INR 1.05 (0.9-1.15); Partial Thromboplastin Time 29.9 SEC (24.5-34.5); Prothrombin Time 11.1 sec (9.3-11.8)
[2024-05-14] MEDS ORDERED: OXYCODONE W/ ACETAMINOPHEN 5/325MG TABLET PO SCH (10:00)
[2024-05-14 10:43] LABS: Anion Gap 7 (5-15); BUN/Creatinine Ratio 19.8 (10.0-20.0)
[2024-05-14 10:44] LABS: Blood Urea Nitrogen 22 mg/dL (9-23); Calcium 9.8 mg/dL (8.7-10.4); Carbon Dioxide 25 mmol/L (20-31); Chloride 106 mmol/L (98-107); Cholesterol 160 mg/dL (< 200); Glucose 119 mg/dL (74-106); LDL Cholesterol 105 mg/dL (< 100); Phosphorus 3.8 mg/dL (2.4-5.1); Potassium 4.9 mmol/L (3.5-5.1); Sodium 138 mmol/L (136-145); Triglycerides 170 mg/dL (< 150)
[2024-05-14 10:48] LABS: HDL Cholesterol 45 mg/dL (40-59)
[2024-05-14] MEDS: METOPROLOL SUCCINATE XL 50 MG TAB PO SCH (12:19)
[2024-05-14] MEDS: SPIRONOLACTONE 25 MG TAB PO SCH (12:19)
[2024-05-14] MEDS: ATORVASTATIN 20 MG TAB PO SCH (12:20)
[2024-05-14] MEDS: LISINOPRIL 5 MG TAB PO SCH (12:20)
[2024-05-14] MEDS: EMPAGLIFLOZIN 10 MG TAB PO SCH (12:21)
[2024-05-14 12:30] VITALS: BP 117/86; PULSE 95; RESP 20; TEMP 98; O2SAT 86
[2024-05-14] MEDS: ENOXAPARIN SOD 100 MG/1 ML SYRINGE SC ONE (12:45)
--- NOTE | 2024-05-14 15:43 | DVHINCON2 ---
Date Seen: May 14, 2024 Referring Physician MD Hema Reason for Consultation Acute new onset CHF History of Present Illness This 54-year-old male presents in the ED with a chief complaint generalized pain. Cardiology is consulted for new onset heart failure. The patient reports episodes of syncope associated with uncontrollable pain on left neck and shoulder the past couple of weeks. The patient denies chest pain, shortness of breath, but admits to orthopnea and dyspnea on exertion for the past few weeks. Upon reviewing medical record, the patient's EF significantly declined (EF 30- 35%) compared to the last year of EF 55-60%. The patient is alert and oriented but somehow poor historian. Past medical history of chronic AFib on Eliquis, hypertension, chronic back pain, marijuana use, and obesity. Past Medical History As stated in HPI Past Surgical History Denies Family History: FH: leukemia G8 MOTHER FH: malignant neoplasm of bone G8 MOTHER Family History Reviewed, non-contributory to the management of this case. Social History The patient lives at home, denies smoking, alcohol Admits to marijuana use Allergies: Coded Allergies: Codeine (Verified Allergy, Mild, 09/29/23) patients states codeine makes him vomit Home Meds Active Scripts Doxycycline Monohydrate (Doxycycline Monohydrate) 100 Mg Cap, 1 CAP PO BID for 5 Days, #10 CAP Prov:CORONA QUINONES RESIDENT 05/01/24 Lisinopril (Lisinopril) 2.5 Mg Tab, 2 TAB PO DAILY for 30 Days, #60 TAB 5 Re fills Prov:CORONA QUINONES 05/01/24 Metoprolol Tartrate (Metoprolol Tartrate) 25 Mg Tab, 0.5 TAB PO BID for 30 Days, #30 TAB 1 Refill Prov:CORONA QUINONES 05/01/24 Pantoprazole Sodium Sesquihydr (Pantoprazole Sodium) 40 Mg Tab, 40 MG PO DAILY, #30 TAB Prov:MATEO HOLLEY MD 07/14/23 Reported Medications Pregabalin (Lyrica) 150 Mg Cap, 1 CAP PO TID, #60 CAP 5 Refills 05/14/24 Ergocalciferol (Vitamin D) 50,000 Unit Cap, 1 CAP PO QWEEKLY 09/29/23 Benztropine Mesylate (Benztropine Mesylate) 1 Mg Tab, 1 TAB PO BID 09/29/23 Vortioxetine Hydrobromide (Trintellix) 20 Mg Tab, 1 TAB PO HS 09/29/23 Lubiprostone (Amitiza) 24 Mcg Cap, 1 CAP PO DAILY 09/29/23 Oxycodone W/ Acetaminophen (Apap/Oxycodone) 1 Tab Tab, 1 TAB PO Q8HR [10/325 mg] 09/29/23 Sertraline Hcl (Sertraline Hcl) 100 Mg Tab, 1 TAB PO BID 09/29/23 Baclofen (Baclofen) 10 Mg Tab, 1 TAB PO TID 09/29/23 Morphine Sulfate (Morphine Sulfate Cr) 30 Mg Tab, 1 TAB PO BID 09/29/23 Brexpiprazole (Rexulti) 4 Mg Tab, 1 TAB PO DAILY 09/28/23 Discontinued Reported Medications Pregabalin (Pregabalin) 150 Mg Cap, 1 CAP PO BID 09/28/23 Current Medications Current Medications Medications (Trade) Dose Ordered Sig/Demian Route PRN Reason Start Time Stop Time Status Last Admin Apixaban (Eliquis) 5 mg BID PO 05/13/24 22:00 05/14/24 10:33 DC 05/13/24 22:37 Lisinopril (Zestril Tablet) 5 mg DAILY PO 05/14/24 10:00 05/14/24 12:20 Metoprolol Succinate (Toprol Xl) 25 mg DAILY PO 05/14/24 10:00 05/14/24 12:19 Atorvastatin Calcium (Lipitor) 20 mg DAILY PO 05/14/24 10:00 05/14/24 12:20 Oxycodone/ Acetaminophen (Percocet 5/ 325MG Tablet) 1 tab DAILY PO 05/14/24 10:00 05/13/24 23:07 DC Oxycodone/ Acetaminophen (Percocet 5/ 325MG Tablet) 1 tab Q6HPRN PRN PO PAIN SCALE 1 THRU 6 05/13/24 23:15 05/14/24 15:06 DC 05/14/24 11:18 Pregabalin (Lyrica Capsule) 150 mg BID PO 05/14/24 04:00 05/14/24 04:47 Pantoprazole Sodium (Protonix) 40 mg BID IV 05/14/24 04:00 05/14/24 04:47 Spironolactone (Aldactone) 25 mg DAILY PO 05/14/24 10:00 05/14/24 12:19 Empaglifozin (Jardiance) 10 mg DAILY PO 05/14/24 10:00 05/14/24 12:21 Enoxaparin Sodium (Lovenox) 120 mg Q12HR SC 05/14/24 22:00 Morphine Sulfate (Oramorph Sustained Release Tab) 15 mg Q12HR PRN PO SEVERE PAIN (7-10 PAIN SCALE) 05/14/24 15:00 UNV Oxycodone/ Acetaminophen (Percocet 5/ 325MG Tablet) 2 tab Q8HPRN PRN PO MODERATE PAIN (4-6 PAIN SCALE) 05/14/24 15:15 UNV Review of Systems Constitutional: No symptom reported Ears, Nose, & Throat: No symptom reported Eyes: No symptom reported Neurological: No symptoms reported Pulmonary/Respiratory: No symptom reported Cardiovascular: No symptom reported Gastrointestinal: No symptom reported Genitourinary: No symptom reported Musculoskeletal: Left neck and shoulder pain Skin: No symptom reported Psychiatric: No symptom reported Endocrine: No symptom reported Hemotologic/Lymphatic: No symptom reported Vital Signs Vital Signs Date Time Temp Pulse Resp B/P (MAP) Pulse Ox O2 Delivery O2 Flow Rate FiO2 05/14/24 12:30 98.0 95 20 117/86 (96) 86 98.0 05/14/24 08:00 Room Air* 0 21 Physical Exam INITIAL VITAL SIGNS: Reviewed by me GENERAL: Alert and interactive. Mild distress HEAD: Head is normocephalic and atraumatic. EYES: EOMI, PERRL. No scleral icterus. No conjunctival injection. ENT: Moist mucous membranes. NECK: Supple, No masses, Full range of motion. RESPIRATORY: No tachypnea. Clear breath sounds bilaterally. No wheezing, rales, rhonchi. CV: AFib rate is controlled, dyspnea on exertion, no edema GI/: Active bowel sounds, soft, nondistended, nontender. No guarding. No rebound. No masses. No CVA tenderness. INTEGUMENTARY: Warm and dry. No obvious rashes. NEUROLOGIC: Alert and oriented. Face is symmetric. Speech is normal. Moves all extremities equally. Labs/Diagnostic Data Labs Test 05/14/24 08:42 2/15/25 05:54 05/13/24 22:08 05/13/24 14:58 Range/Units White Blood Count 5.9 # 4.4-10.8 10^3/uL Red Blood Count 5.09 4.5-5.90 10^6/uL Hemoglobin 15.3 13.5-17.5 g/dL Hematocrit 45.0 41.0-53.0 % Mean Corpuscular Volume 88.5 80.0-100.0 fL Mean Corpuscular Hemoglobin 30.0 28.0-32.0 pg Mean Corpuscular Hemoglobin Concent 33.9 32.0-36.0 g/dL Red Cell Distribution Width 14.6 H 11.8-14.3 % Platelet Count 214 140-450 10^3/uL Mean Platelet Volume 9.8 6.9-10.8 fL Neutrophils (%) (Auto) 61.7 37.0-80.0 % Lymphocytes (%) (Auto) 26.5 10.0-50.0 % Monocytes (%) (Auto) 8.6 0.0-12.0 % Eosinophils (%) (Auto) 2.5 0.0-7.0 % Basophils (%) (Auto) 0.7 0.0-2.0 % Neutrophils # (Auto) 3.6 1.6-8.6 10 ^3/uL Lymphocytes # (Auto) 1.6 0.4-5.4 10 ^3/uL Monocytes # (Auto) 0.5 0-1.3 10 ^3/uL Eosinophils # (Auto) 0.1 0-0.8 10 ^3/uL Basophils # (Auto) 0 0-0.2 10 ^3/uL Nucleated Red Blood Cells 0.4 % Prothrombin Time 11.1 9.3-11.8 sec Prothrombin Time INR 1.05 0.9-1.15 Activated Partial Thromboplast Time 29.9 24.5-34.5 SEC Sodium Level 138 136-145 mmol/L Potassium Level 4.9 3.5-5.1 mmol/L Chloride Level 106 98-107 mmol/L Carbon Dioxide Level 25 20-31 mmol/L Anion Gap 7 5-15 Blood Urea Nitrogen 22 9-23 mg/dL Creatinine 1.11 0.700-1.30 mg/dL Glomerular Filtration Rate Calc 78 >90 mL/min BUN/Creatinine Ratio 19.8 10.0-20.0 Serum Glucose 119 H 74-106 mg/dL Calcium Level 9.8 8.7-10.4 mg/dL Phosphorus Level 3.8 2.4-5.1 mg/dL Magnesium Level 2.0 1.6-2.6 mg/dL Triglycerides Level 170 H < 150 mg/dL Cholesterol Level 160 < 200 mg/dL LDL Cholesterol 105 H < 100 mg/dL HDL Cholesterol 45 40-59 mg/dL Urine Color Light-yellow Yellow Urine Clarity Clear Clear Urine pH 5.5 5.0-9.0 Urine Specific [place] 1.020 1.001-1.035 Urine Protein Negative Negative Urine Ketones Negative Negative Urine Blood Negative Negative /uL Urine Nitrite Negative Negative Urine Bilirubin Negative Negative Urine Urobilinogen Normal Negative mg/dL Urine Leukocyte Esterase Negative Negative /uL Urine RBC <1 0 - 3 /hpf Urine Microscopic WBC 1 0-3 /HPF Urine Squamous Epithelial Cells None seen <5 /hpf Urine Bacteria None seen None Seen /hpf Urine Glucose Normal Normal mg/dL Urine Opiates Screen Neg NEGATIVE Urine Fentanyl Screen Neg NEGATIVE Urine Barbiturates Screen Neg NEGATIVE Urine Phencyclidine Screen Neg NEGATIVE Urine Amphetamines Screen Neg NEGATIVE Urine Benzodiazepines Screen Neg NEGATIVE Urine Cocaine Screen Neg NEGATIVE Urine Cannabinoids Screen Pos NEGATIVE Erythrocyte Sedimentation Rate 4 0-20 mm/hr Total Bilirubin 0.3 0.2-1.0 mg/dL Aspartate Amino Transferase (AST) 17 13-40 U/L Alanine Aminotransferase (ALT) 19 7-40 U/L Alkaline Phosphatase 73 46-116 U/L Creatine Kinase 110 46-171 U/L C-Reactive Protein High Sensitivity 0.07 <1.0 mg/dL Total Protein 7.2 5.7-8.2 g/dL Albumin 4.8 3.2-4.8 g/dL Thyroid Stimulating Hormone (TSH) 2.37 0.55-4.78 uIU/mL Troponin I High Sensitivity < 3 L </=54 ng/L B-Type Natriuretic Peptide 19.27 0-100 pg/mL Test 05/13/24 00:00 Range/Units Influenza Type A Antigen Negative Negative Influenza Type B Antigen Negative Negative SARS-CoV-2 Antigen (Rapid) Negative NEGATIVE PROCEDURE(s): CXRP - CHEST PORTABLE REASON: SOB ORDER NUMBER(s): [id number], ACCESSION NUMBER(s): [id number] CHEST RADIOGRAPH Indication: SOB Technique: Single frontal view of the chest was obtained Comparison: XY CHEST PORTABLE on DOS: 04/29/2024 FINDINGS: Lines and Tubes: None Lungs: Interval decrease in right lower lobe opacity . Pleura: No effusion.No pneumothorax. Cardiomediastinal contours: Unremarkable Pulmonary vasculature: Within normal limits. Bones: No acute osseous abnormality. IMPRESSION: 1. . Interval decrease in right lower lobe opacity may represent residual airspace disease versus atelectasis. Assessment Acute HFrEF, newly diagnosed Chronic AFib on Eliquis Hypertensive urgency, now controlled Hyperlipidemia Chronic pain Schizoaffective disorder Obesity Plan/Recommendation Discussed case with Dr. Echeverria, we will schedule for a right and left cardiac catheterization and coronary angiogram at first available. Left heart catheterization informed consent with patient who agreed with the procedure. Continue with GDMT for HF as tolerated Continue with rate control metoprolol, Therapeutic Lovenox Monitor ECG Monitor electrolytes and replete as needed Thank you for allowing us to participate in this patient's care. Please call if you have any questions or concerns. This medical document was created using an electronic medical record system with [employer] dictation system. Although this document has been carefully reviewed, there might still be some phonetic and typographical errors. These areas are purely typographical due to imperfections of the software programs, and do not reflect any compromise in the patient's medical care. Plan discussed with: Patient, Other Plan discussed with: Patient NYHA Physical activity limitations: Class3(Marked) ordinary Date of Service: May 14, 2024 Billing Provider: TINO ECHEVERRIA MD Cardiology Common Codes: NOT BILLABLE PREET LA COUNSELOR AIDE May 14, 2024 15:43
[2024-05-14 17:00] VITALS: BP 100/59; PULSE 85; RESP 20; TEMP 98; O2SAT 96
--- NOTE | 2024-05-14 17:16 | DVH ---
EXAM: CT HEAD WITHOUT CONTRAST HISTORY: Syncope with head truma COMPARISON: CT HEAD WITHOUT CONTRAST on DOS: 04/29/24, CT HEAD WITHOUT CONTRAST on DOS: 09/28/23, CT HEA D WITHOUT CONTRAST on DOS: 07/11/23 TECHNIQUE: Axial images were obtained and reformatted in coronal and sagittal planes. All CT scans at this medical facility are performed using dose modulation techniques as appropriate t o a performed exam including the following: Automated exposure control was utilized; adjustment of th e MA and/or KV according to patient size; and use of iterative reconstruction technique. CT Dose: CTDI volume is 48.65 mGy. Dose-length product is 941.48 mGy*cm FINDINGS: Supratentorial Region: No evidence for large acute territorial ischemia. No intracranial hemorrhage is noted. Posterior Fossa: No acute abnormality. Brainstem: Unremarkable. Sellar/Suprasellar Region: Unremarkable. Ventricles, Cisterns, Sulci: Age-appropriate. Orbits: Unremarkable. Paranasal Sinuses: Unremarkable. Mastoid Air Cells: Unremarkable. Vasculature: Unremarkable. Bones/Soft Tissues: No acute abnormality. Other: None. IMPRESSION: 1. No acute intracranial process.
[2024-05-14] MEDS: MORPHINE SULF 15mg ER tab PO PRN (17:57)
[2024-05-14 20:00] VITALS: PULSE 80; RESP 19
[2024-05-14 21:00] VITALS: BP 109/65; PULSE 83; RESP 19; TEMP 97.7; O2SAT 94
--- NOTE | 2024-05-14 21:15 | DVHPNRES ---
Progress Note Date Seen: May 14, 2024 Resident Creating Document: MARY RUBIO RESIDENT Medical Necessity Reason Pt with a Central, PICC or Fol: No Subjective Review of Systems Seb Bustillos is a 54-year-old male patient who presents to the ED with complaints of intermittent dyspnea which worsens with exertion and improves with rest which has been occurring for the past month, but has increased in frequency recently prompting his visit. Other associated symptoms are generalized body aches, fatigue, diaphoresis and poor appetite. He was recently discharged one week ago due to multiple syncopal episodes with head trauma, but currently still complains of body aches (shoulders, neck and right hip). Completed echocardiogram which showed decreased LVEF, no ischemia workup was completed during that admission, was discharged with optimal medical therapy for HFrEF. Denies palpitation, orthopnea, chest pain, cough, congestion, or fever. He is a poor historian and endorses Past Medical History: Dyslipidemia, obesity, recently diagnosed HFrEF (LVEF 30- 35 on 03/2024, previous LVEF on 06/2023 55%), persistent atrial fibrillation (chads Vasc 3 /has bled 2) currently under apixaban, CVA, GERD, schizoaffective disorder, depression, chronic back pain secondary to cervical spine osteoarthritis with surgical fusion at C4-C6, vitamin-D deficiency Past Surgical History: Cervical spine degenerative disease status post fusion of C4-C5 and C5-C6 Family history: Noncontributory Social history: Lives with in [place]. Denies current tobacco, alcohol and other drug abuse Allergies: Codeine Home medication: Baclofen 10 mg p.o. t.i.d., vitamin-D, metoprolol titrate 25 mg p.o. b.i.d., morphine, pantoprazole 40 mg p.o. daily, benztropine,Brexpiprazole, lisinopril, oxycodone, pregabalin, sertraline, Amitiza Patient seen and examined at bedside. Patient currently feels better from dyspnea whenever he used at rest. He has been walking with mild dyspnea. Cardiology evaluated the patient and decided to complete left heart catheterization on Thursday to rule out ischemia #Hypertensive urgency at admission #Newly diagnosed CHF (EF 30-35%) #Atrial fibrillation w/o RVR #Generalized pain (shoulders, neck, back) #Schizoaffective disorder #Depression #Hyperlipidiemia #GERD ECHO: The left ventricle is normal size. There is normal left ventricular wall thickness. The left ventricle function is moderate to severely reduced, LVEF 30- 35%. Global hypokinesis. The right ventricular systolic function is normal. The left and right atrial size is normal. No significant valvular abnormalities. There is mild aortic root dilatation. No significant pericardial effusion. Admit med/surg Start GMDT: spironolactone, jardiance Resume home meds: lisinopril, apixaban, metoprolol, atorvastatin Pneumonia: resolved: no SIRS at admission, SpO2 normal: no need of AB, radiographic findings are improving Continue Percocet and pregabalin Check inflammatory markers Consider further work up on new onset HF: no acute exacerbation Case discussed with Dr Dior Objective vital signs Vital Sign Date Time Temp Pulse Resp B/P (MAP) Pulse Ox O2 Delivery O2 Flow Rate FiO2 05/14/24 17:00 98.0 85 20 100/59 (73) 96 98.0 05/14/24 08:00 Room Air* 0 21 Total Intake and Output 05/13/24 05/13/24 05/14/24 15:00 23:00 07:00 Intake Total 700 ml Balance 700 ml medications Current Medications Medications Dose Ordered Sig/Demian Route Start Time Stop Time Status Last Admin Dose Admin Lisinopril 5 mg DAILY PO 05/14/24 10:00 05/14/24 12:20 5 MG Metoprolol Succinate 25 mg DAILY PO 05/14/24 10:00 05/14/24 12:19 25 MG Atorvastatin Calcium 20 mg DAILY PO 05/14/24 10:00 05/14/24 12:20 20 MG Pregabalin 150 mg BID PO 05/14/24 04:00 05/14/24 04:47 150 MG Pantoprazole Sodium 40 mg BID IV 05/14/24 04:00 05/14/24 04:47 40 MG Spironolactone 25 mg DAILY PO 05/14/24 10:00 05/14/24 12:19 25 MG Empaglifozin 10 mg DAILY PO 05/14/24 10:00 05/14/24 12:21 10 MG Enoxaparin Sodium 120 mg Q12HR SC 05/14/24 22:00 Morphine Sulfate 15 mg Q12HR PRN PO 05/14/24 15:00 05/14/24 17:57 15 MG Oxycodone/ Acetaminophen 2 tab Q8HPRN PRN PO 05/14/24 15:15 05/14/24 20:27 2 TAB Examination Patient lying in bed, in no acute distress General: Lucid, afebrile, mucosae are moist Cardiovascular: Normal S1 and S2. No murmurs, gallops or rubs Respiratory: Normal ventilation mechanics. Clear lung sounds on auscultation Abdomen: Soft, nontender, no organomegaly, normal bowel sounds MSK/skin: Mobilizes 4 limbs. Skin is dry and warm Neurological: Oriented in 3 spheres. No motor no sensitive deficits. Pupils are isocoric and reactive laboratory and microbiology Laboratory Tests 05/14/24 08:42 Test 05/14/24 08:42 Range/Units Serum Glucose 119 H 74-106 mg/dL Problem List/Assessment/Plan Problem List/Assessment/Plan Assessment: # Acute systolic congestive heart failure newly diagnosed (HFrEF, [id number]%), deteriorated function since one year ago # Persistent Atrial fibrillation with moderate ventricular response (chads Vasc 3 / has bled 2) secondary hypercoagulability state # Hypertensive urgency # Ruled out CVA # Chronic back pain # Musculoskeletal pain secondary to multiple episodes of syncope # History is syncope, unknown etiology (rule out cardiogenic etiology) # Schizoaffective disorder # Depression # Hyperlipidiemia # GERD Plan: Currently patient is in telemetry status On GMDT: Metoprolol, lisinopril spironolactone, jardiance Resumed atorvastatin, switch apixaban to enoxaparin due to eventual left heart catheterization on Thursday Optimize pain therapy Completed head CT which ruled out acute intracranial pathology Cardiology on board: Decided to complete left heart catheterization on Thursday to rule out ischemia for probable cause of dyspnea. Goals of care discussed with patient for over 18 minutes: Full code status Case discussed with Dr Dill, patient and nurses: Planning to complete left heart catheterization on Thursday. Optimize pain medication, upgraded to telemetry. Plan discussed with: Patient, Other (Nurses) My Orders My Orders Orders - MARY RUBIO RESIDENT Procedure Category Date Status Time Case Briefer ORDERS 05/14/24 Transmitted 09:30 * Cardiology Consult CONS 05/14/24 Transmitted 10:30 Enoxaparin Sodium PHA 05/14/24 In Process (Lovenox) 22:00 Morphine Extended PHA 05/14/24 In Process Release Tab (Oramorph 15:00 Oxycodone W/ Acet PHA 05/14/24 In Process 5/325mg Tab (Percocet 15:[address] 05/14/24 Resulted 15:22 Date of Service: May 14, 2024 Billing Provider: MARGY DILL MD Common Visit Codes: [id number] INP/OBS CARE(HIGH) MARY RUBIO RESIDENT May 14, 2024 21:15 MARGY DILL MD May 15, 2024 09:47
[2024-05-14] MEDS: ENOXAPARIN SOD 100 MG/1 ML SYRINGE SC SCH (22:00)
[2024-05-15] VITALS (9 sets, daily range): BP systolic 90–112; BP diastolic 47–72; PULSE 62–86; RESP 16–20; TEMP 97.4–98.1; O2SAT 94–100
[2024-05-15 09:50] LABS: Alanine Aminotransferase 19 U/L (7-40); Alkaline Phosphatase 72 U/L (46-116); Anion Gap 6 (5-15); Blood Urea Nitrogen 16 mg/dL (9-23); Calcium 10.1 mg/dL (8.7-10.4); Carbon Dioxide 27 mmol/L (20-31); Chloride 104 mmol/L (98-107); Magnesium 2.2 mg/dL (1.6-2.6); Potassium 4.8 mmol/L (3.5-5.1); Sodium 137 mmol/L (136-145)
[2024-05-15 09:51] LABS: Albumin 4.8 g/dL (3.2-4.8); Aspartate Aminotransferase 21 U/L (13-40); Bilirubin, Total 0.5 mg/dL (0.2-1.0); Phosphorus 3.9 mg/dL (2.4-5.1); Total Protein 7.1 g/dL (5.7-8.2)
[2024-05-15 09:52] LABS: Basophils # (auto) 0 10 ^3/uL (0-0.2); Basophils % (auto) 0.6 % (0.0-2.0); Eosinophils # (auto) 0.2 10 ^3/uL (0-0.8); Eosinophils % (auto) 2.7 % (0.0-7.0); Glucose 136 mg/dL (74-106); Hemoglobin 15.7 g/dL (13.5-17.5); Lymphocytes # (auto) 1.7 10 ^3/uL (0.4-5.4); Lymphocytes % (auto) 24.3 % (10.0-50.0); Mean Corpuscular Hemoglobin 29.7 pg (28.0-32.0); Mean Corpuscular Hgb Conc. 33.4 g/dL (32.0-36.0); Mean Corpuscular Volume 88.9 fL (80.0-100.0); Monocytes # (auto) 0.5 10 ^3/uL (0-1.3); Monocytes % (auto) 7.4 % (0.0-12.0); Neutrophils # (auto) 4.5 10 ^3/uL (1.6-8.6); Nucleated Red Blood Cells % 0.2 %; Platelet Count (auto) 215 10^3/uL (140-450); Red Blood Cells 5.29 10^6/uL (4.5-5.90); Red Cell Distribution Width 14.3 % (11.8-14.3); White Blood Cell 6.9 10^3/uL (4.4-10.8)
--- NOTE | 2024-05-15 11:44 | DVHPNRES ---
Progress Note Date Seen: May 15, 2024 Resident Creating Document: SHAVON ADAMS RESIDENT Medical Necessity Reason Pt with a Central, PICC or Fol: No Subjective Review of Systems Seb Bustillos is a 54-year-old male patient who presents to the ED with complaints of intermittent dyspnea which worsens with exertion and improves with rest which has been occurring for the past month, but has increased in frequency recently prompting his visit. Other associated symptoms are generalized body aches, fatigue, diaphoresis and poor appetite. He was recently discharged one week ago due to multiple syncopal episodes with head trauma, but currently still complains of body aches (shoulders, neck and right hip). Completed echocardiogram which showed decreased LVEF, no ischemia workup was completed during that admission, was discharged with optimal medical therapy for HFrEF. Denies palpitation, orthopnea, chest pain, cough, congestion, or fever. He is a poor historian and endorses Past Medical History: Dyslipidemia, obesity, recently diagnosed HFrEF (LVEF 30- 35 on 03/2024, previous LVEF on 06/2023 55%), persistent atrial fibrillation (chads Vasc 3 /has bled 2) currently under apixaban, CVA, GERD, schizoaffective disorder, depression, chronic back pain secondary to cervical spine osteoarthritis with surgical fusion at C4-C6, vitamin-D deficiency Past Surgical History: Cervical spine degenerative disease status post fusion of C4-C5 and C5-C6 Family history: Noncontributory Social history: Lives with in [place]. Denies current tobacco, alcohol and other drug abuse Allergies: Codeine Home medication: Baclofen 10 mg p.o. t.i.d., vitamin-D, metoprolol titrate 25 mg p.o. b.i.d., morphine, pantoprazole 40 mg p.o. daily, benztropine,Brexpiprazole, lisinopril, oxycodone, pregabalin, sertraline, Amitiza Patient seen and examined at bedside. Patient currently feels better from dyspnea whenever he used at rest. He has been walking with mild dyspnea. However, reports continuing right neck and shoulder pain. Cardiology evaluated the patient and decided to complete left heart catheterization on Thursday to rule out ischemia Objective vital signs Vital Sign Date Time Temp Pulse Resp B/P (MAP) Pulse Ox O2 Delivery O2 Flow Rate FiO2 05/15/24 09:30 62 112/70 05/15/24 08:52 97.5 18 100 97.5 05/15/24 08:15 Room Air* 0 21 Total Intake and Output 05/14/24 05/14/24 05/15/24 15:00 23:00 07:00 Intake Total 1200 ml 800 ml Balance 1200 ml 800 ml medications Current Medications Medications Dose Ordered Sig/Demian Route Start Time Stop Time Status Last Admin Dose Admin Lisinopril 5 mg DAILY PO 05/14/24 10:00 05/14/24 12:20 5 MG Metoprolol Succinate 25 mg DAILY PO 05/14/24 10:00 05/14/24 12:19 25 MG Atorvastatin Calcium 20 mg DAILY PO 05/14/24 10:00 05/15/24 09:19 20 MG Pregabalin 150 mg BID PO 05/14/24 04:00 05/15/24 09:20 150 MG Pantoprazole Sodium 40 mg BID IV 05/14/24 04:00 05/15/24 09:21 40 MG Spironolactone 25 mg DAILY PO 05/14/24 10:00 05/15/24 09:19 25 MG Empaglifozin 10 mg DAILY PO 05/14/24 10:00 05/15/24 09:20 10 MG Morphine Sulfate 15 mg Q12HR PRN PO 05/14/24 15:00 05/15/24 09:19 15 MG Oxycodone/ Acetaminophen 2 tab Q8HPRN PRN PO 05/14/24 15:15 05/15/24 04:31 2 TAB Examination General Appearance: Cooperative. Well developed. Well nourished. NAD Head Exam: Normal inspection Neck Exam: Normal inspection. Tender to palpation. Normal alignment Pulmonary/Respiratory: Chest non-tender. Clear bilateral breath sounds, no crackles, no wheezing. Cardiovascular/Chest: No murmurs. No gallops. No rubs. Peripheral Pulses: 2+ Radial (R). 2+ Radial (L). 2+ Pedal (R). 2+ Pedal (L) Abdominal Exam: Normal bowel sounds. Soft. normal abdomen, no visible veins, Nontender. No hepatospenomegaly. No masses Ankle Exam: Negative ankle edema Lower extremities: Negative lower extremity edema Neuro/Mental Status: A&O x4. Coherent. Skin Exam: Normal inspection. Normal color. Warm. Dry laboratory and microbiology Laboratory Tests 05/15/24 08:20 Test 05/15/24 08:20 Range/Units Serum Glucose 136 H 74-106 mg/dL Microbiology Date/Time Source Procedure Growth Status 05/14/24 05:57 Nose MRSA Screen - Final Complete Labs and/or images reviewed: Labs reviewed by me, Image(s) reviewed by me Problem List/Assessment/Plan Problem List/Assessment/Plan # Acute systolic congestive heart failure newly diagnosed (HFrEF, [id number]%), deteriorated function since one year ago # Persistent Atrial fibrillation with moderate ventricular response (chads Vasc 3 / has bled 2) secondary hypercoagulability state # Hypertensive urgency # Ruled out CVA # Chronic back pain # Musculoskeletal pain secondary to multiple episodes of syncope # History is syncope, unknown etiology (rule out cardiogenic etiology) # Schizoaffective disorder # Depression # Hyperlipidiemia # GERD Plan: Currently patient is in telemetry status On GMDT: Metoprolol, lisinopril spironolactone, jardiance Resumed atorvastatin, switch apixaban to enoxaparin due to eventual left heart catheterization on Thursday Optimize pain therapy Completed head CT which ruled out acute intracranial pathology Cardiology on board: Decided to complete left heart catheterization on Thursday to rule out ischemia for probable cause of dyspnea. Resumed home medication brexpiprazole and sertraline PT evaluation requested Goals of care discussed with patient for over 18 minutes: Full code status Case discussed with Dr Tolbert, patient and nurses: Planning to complete left heart catheterization on Thursday. Optimize pain medication, upgraded to telemetry. Plan discussed with: Patient, Other (RN) Date of Service: May 15, 2024 Billing Provider: MARGY TOLBERT MD Common Visit Codes: [id number] INP/OBS CARE(HIGH) SHAVON ADAMS RESIDENT May 15, 2024 11:44 MARGY TOLBERT MD May 15, 2024 22:03
[2024-05-15] MEDS: BACLOFEN 10 MG TAB PO SCH (21:54)
[2024-05-16] VITALS (9 sets, daily range): BP systolic 87–125; BP diastolic 51–75; PULSE 64–99; RESP 16–20; TEMP 97.9–98.5; O2SAT 94–98
[2024-05-16] MEDS: ONDANSETRON HCL 4 MG/2 ML VIAL IV PRN (02:27)
[2024-05-16] MEDS: SERTRALINE HCL 50 MG TAB PO SCH (05:55)
[2024-05-16 08:09] LABS: Basophils # (auto) 0 10 ^3/uL (0-0.2); Basophils % (auto) 0.4 % (0.0-2.0); Eosinophils # (auto) 0.1 10 ^3/uL (0-0.8); Eosinophils % (auto) 2.2 % (0.0-7.0); Hematocrit 45.9 % (41.0-53.0); Hemoglobin 15.4 g/dL (13.5-17.5); Lymphocytes # (auto) 0.8 10 ^3/uL (0.4-5.4); Lymphocytes % (auto) 12.4 % (10.0-50.0); Mean Corpuscular Hemoglobin 29.9 pg (28.0-32.0); Mean Corpuscular Hgb Conc. 33.6 g/dL (32.0-36.0); Mean Corpuscular Volume 89.2 fL (80.0-100.0); Monocytes # (auto) 0.5 10 ^3/uL (0-1.3); Monocytes % (auto) 7.7 % (0.0-12.0); Neutrophils % (auto) 77.3 % (37.0-80.0); Platelet Count (auto) 189 10^3/uL (140-450); Red Blood Cells 5.14 10^6/uL (4.5-5.90); Red Cell Distribution Width 14.4 % (11.8-14.3); White Blood Cell 6.4 10^3/uL (4.4-10.8)
[2024-05-16 08:11] LABS: Alanine Aminotransferase 16 U/L (7-40); Albumin 4.5 g/dL (3.2-4.8); Alkaline Phosphatase 72 U/L (46-116); Anion Gap 4 (5-15); Aspartate Aminotransferase 18 U/L (13-40); BUN/Creatinine Ratio 18.2 (10.0-20.0); Blood Urea Nitrogen 20 mg/dL (9-23); Calcium 9.7 mg/dL (8.7-10.4); Carbon Dioxide 30 mmol/L (20-31); Chloride 104 mmol/L (98-107); Glucose 102 mg/dL (74-106); Potassium 5.1 mmol/L (3.5-5.1); Sodium 138 mmol/L (136-145)
[2024-05-16 08:12] LABS: Total Protein 6.7 g/dL (5.7-8.2)
[2024-05-16 08:18] LABS: Bilirubin, Total 0.9 mg/dL (0.2-1.0)
[2024-05-16] MEDS: BREXPIPRAZOLE 4 MG PO SCH (10:00)
[2024-05-16] MEDS ORDERED: HEPARIN SODIUM (PORCINE) 5000 UNITS/ML 1ML VIAL ONE (10:26)
[2024-05-16] MEDS ORDERED: VERAPAMIL 2.5MG/ML INJ 2ML VIAL IV ONE (10:26)
[2024-05-16] MEDS ORDERED: fentaNYL CITRATE 100 MCG/2 ML VL ONE (10:26)
[2024-05-16] MEDS ORDERED: MIDAZOLAM HCL 2MG/2ML 2ml VIAL (1mg/ml) ONE (10:26)
[2024-05-16] MEDS ORDERED: IODIXANOL 320MG/ML 100ML BTL IV ONE (10:27)
[2024-05-16] MEDS ORDERED: LIDOCAINE 2%HCL (LOCAL ANESTH.) INJ 20ML MDV ONE (10:28)
[2024-05-16] MEDS ORDERED: ANGIOMAX 250 MG VIAL IV ONE (10:29)
[2024-05-16] MEDS: ASPirin 81 mg TAB PO SCH (11:41)
--- NOTE | 2024-05-16 16:07 | DVHPNRES ---
Progress Note Date Seen: May 16, 2024 Resident Creating Document: MARY RUBIO RESIDENT Medical Necessity Reason Pt with a Central, PICC or Fol: No Subjective Review of Systems Seb Bustillos is a 54-year-old male patient who presents to the ED with complaints of intermittent dyspnea which worsens with exertion and improves with rest which has been occurring for the past month, but has increased in frequency recently prompting his visit. Other associated symptoms are generalized body aches, fatigue, diaphoresis and poor appetite. He was recently discharged one week ago due to multiple syncopal episodes with head trauma, but currently still complains of body aches (shoulders, neck and right hip). Completed echocardiogram which showed decreased LVEF, no ischemia workup was completed during that admission, was discharged with optimal medical therapy for HFrEF. Denies palpitation, orthopnea, chest pain, cough, congestion, or fever. He is a poor historian and endorses Past Medical History: Dyslipidemia, obesity, recently diagnosed HFrEF (LVEF 30- 35 on 03/2024, previous LVEF on 06/2023 55%), persistent atrial fibrillation (chads Vasc 3 /has bled 2) currently under apixaban, CVA, GERD, schizoaffective disorder, depression, chronic back pain secondary to cervical spine osteoarthritis with surgical fusion at C4-C6, vitamin-D deficiency Past Surgical History: Cervical spine degenerative disease status post fusion of C4-C5 and C5-C6 Family history: Noncontributory Social history: Lives with in [place]. Denies current tobacco, alcohol and other drug abuse Allergies: Codeine Home medication: Baclofen 10 mg p.o. t.i.d., vitamin-D, metoprolol titrate 25 mg p.o. b.i.d., morphine, pantoprazole 40 mg p.o. daily, benztropine,Brexpiprazole, lisinopril, oxycodone, pregabalin, sertraline, Amitiza Patient seen and examined at bedside. Patient currently feels dyspnea in variable functional class. Cardiology evaluated the patient and decided to complete left heart catheterization on Thursday to rule out ischemia (procedure postpone due to technical difficulties in labor relations officer). Have optimize pain medication due to neuropathic pain (on gabapentin and capsaicin cream). Objective vital signs Vital Sign Date Time Temp Pulse Resp B/P (MAP) Pulse Ox O2 Delivery O2 Flow Rate FiO2 05/16/24 13:00 98.5 74 20 91/57 (68) 96 98.5 05/16/24 08:20 Room Air* 0 21 Total Intake and Output 05/15/24 05/15/24 05/16/24 15:00 23:00 07:00 Intake Total 1020 ml 0 ml Balance 1020 ml 0 ml medications Current Medications Medications Dose Ordered Sig/Demian Route Start Time Stop Time Status Last Admin Dose Admin Lisinopril 5 mg DAILY PO 05/14/24 10:00 05/14/24 12:20 5 MG Metoprolol Succinate 25 mg DAILY PO 05/14/24 10:00 05/14/24 12:19 25 MG Atorvastatin Calcium 20 mg DAILY PO 05/14/24 10:00 05/16/24 11:41 20 MG Pregabalin 150 mg BID PO 05/14/24 04:00 05/16/24 11:41 150 MG Pantoprazole Sodium 40 mg BID IV 05/14/24 04:00 05/16/24 11:41 40 MG Spironolactone 25 mg DAILY PO 05/14/24 10:00 05/15/24 09:19 25 MG Empaglifozin 10 mg DAILY PO 05/14/24 10:00 05/16/24 11:42 10 MG Morphine Sulfate 15 mg Q12HR PRN PO 05/14/24 15:00 05/16/24 11:49 15 MG Oxycodone/ Acetaminophen 2 tab Q8HPRN PRN PO 05/14/24 15:15 05/16/24 13:45 2 TAB Patient Own Medication 1 tab DAILY PO 05/16/24 10:00 Sertraline HCl 100 mg BID@0600,1200 PO 05/16/24 06:00 05/16/24 05:55 100 MG Baclofen 10 mg Q8HR PO 05/15/24 22:00 05/16/24 13:44 10 MG Ondansetron HCl 4 mg Q4HPRN PRN IV 05/16/24 02:15 05/16/24 02:27 4 MG Aspirin 81 mg DAILY PO 05/16/24 10:00 05/16/24 11:41 81 MG Gabapentin 100 mg TID PO 05/16/24 22:00 Capsaicin 1 applic Q8HR TOP 05/16/24 22:00 Examination Patient lying in bed, in no acute distress General: Lucid, afebrile, mucosae are moist Cardiovascular: Normal S1 and S2. No murmurs, gallops or rubs Respiratory: Normal ventilation mechanics. Clear lung sounds on auscultation Abdomen: Soft, nontender, no organomegaly, normal bowel sounds MSK/skin: Mobilizes 4 limbs. Skin is dry and warm Neurological: Oriented in 3 spheres. No motor no sensitive deficits. Pupils are isocoric and reactive laboratory and microbiology Laboratory Tests 05/16/24 06:18 Test 05/16/24 06:18 Range/Units Serum Glucose 102 74-106 mg/dL Microbiology Date/Time Source Procedure Growth Status 05/14/24 05:57 Nose MRSA Screen - Final Complete Problem List/Assessment/Plan Problem List/Assessment/Plan Assessment: # Acute systolic congestive heart failure newly diagnosed (HFrEF, [id number]%), deteriorated function since one year ago # Persistent Atrial fibrillation with moderate ventricular response (chads Vasc 3 / has bled 2) secondary hypercoagulability state # Hypertensive urgency # Ruled out CVA # Chronic back pain # neuropathic pain # Musculoskeletal pain secondary to multiple episodes of syncope # History of syncope, unknown etiology (rule out cardiogenic etiology) # Schizoaffective disorder # Depression # Hyperlipidiemia # GERD Plan: Currently patient is in telemetry status On GMDT: Metoprolol, lisinopril spironolactone, jardiance Resumed atorvastatin, switch apixaban to enoxaparin due to eventual left heart catheterization on Thursday Optimize pain therapy (added gabapentin and capsaicin cream) Completed head CT which ruled out acute intracranial pathology Cardiology on board: Decided to complete left heart catheterization on Thursday (postponed due to technical difficulties) to rule out ischemia for probable cause of dyspnea. Goals of care discussed with patient for over 18 minutes: Full code status Case discussed with Dr Louis, patient and nurses: Planning to complete left heart catheterization on 05/16/2024. Optimize pain medication. Plan discussed with: Patient, Other (Nurses) My Orders My Orders Orders - MARY RUBIO RESIDENT Procedure Category Date Status Time Aspirin Tablet PHA 05/16/24 In Process 10:00 Gabapentin Capsule PHA 05/16/24 In Process (Neurontin Capsule) 22:00 Date of Service: May 16, 2024 Billing Provider: ESTELA LOUIS MD Common Visit Codes: [id number] INP/OBS CARE(HIGH) MARY RUBIO RESIDENT May 16, 2024 16:07 ESTELA LOUIS MD May 17, 2024 16:15
[2024-05-16] MEDS: GABAPENTIN 100 MG CAP PO ONE (17:38)
[2024-05-16] MEDS: GABAPENTIN 100 MG CAP PO SCH (22:17)
[2024-05-16] MEDS: CAPSAICIN 0.025% CREAM 60GM TOP SCH (22:43)
[2024-05-17] VITALS (13 sets, daily range): BP systolic 100–127; BP diastolic 50–74; PULSE 62–90; RESP 12–20; TEMP 97.3–98.2; O2SAT 92–98
[2024-05-17 07:30] LABS: Basophils # (auto) 0 10 ^3/uL (0-0.2); Basophils % (auto) 0.2 % (0.0-2.0); Eosinophils # (auto) 0.1 10 ^3/uL (0-0.8); Eosinophils % (auto) 2.4 % (0.0-7.0); Hematocrit 45.8 % (41.0-53.0); Hemoglobin 15.2 g/dL (13.5-17.5); Lymphocytes # (auto) 0.7 10 ^3/uL (0.4-5.4); Lymphocytes % (auto) 13.1 % (10.0-50.0); Mean Corpuscular Hemoglobin 29.6 pg (28.0-32.0); Mean Corpuscular Hgb Conc. 33.2 g/dL (32.0-36.0); Mean Corpuscular Volume 89.2 fL (80.0-100.0); Monocytes # (auto) 0.6 10 ^3/uL (0-1.3); Monocytes % (auto) 11.3 % (0.0-12.0); Nucleated Red Blood Cells % 0.3 %; Platelet Count (auto) 209 10^3/uL (140-450); Red Blood Cells 5.14 10^6/uL (4.5-5.90); Red Cell Distribution Width 14.4 % (11.8-14.3); White Blood Cell 5.5 10^3/uL (4.4-10.8)
[2024-05-17 07:53] LABS: Anion Gap 9 (5-15); Carbon Dioxide 22 mmol/L (20-31); Chloride 105 mmol/L (98-107)
[2024-05-17 07:54] LABS: Calcium 9.8 mg/dL (8.7-10.4)
[2024-05-17 07:59] LABS: BUN/Creatinine Ratio 13.7 (10.0-20.0); Blood Urea Nitrogen 13 mg/dL (9-23); Glucose 97 mg/dL (74-106)
[2024-05-17 08:04] LABS: Sodium 136 mmol/L (136-145)
[2024-05-17] MEDS ORDERED: IODIXANOL 320MG/ML 100ML BTL IV ONE (12:11)
[2024-05-17] MEDS ORDERED: VERAPAMIL 2.5MG/ML INJ 2ML VIAL IV ONE (12:24)
[2024-05-17] MEDS ORDERED: ANGIOMAX 250 MG VIAL IV ONE (12:24)
[2024-05-17] MEDS ORDERED: fentaNYL CITRATE 100 MCG/2 ML VL ONE (12:24)
[2024-05-17] MEDS ORDERED: LIDOCAINE 2%HCL (LOCAL ANESTH.) INJ 20ML MDV ONE (12:25)
[2024-05-17] MEDS ORDERED: MIDAZOLAM HCL 2MG/2ML 2ml VIAL (1mg/ml) ONE (12:25)
[2024-05-17] MEDS ORDERED: SODIUM CHL 0.9% 0 ML ONE (12:25)
[2024-05-17] MEDS ORDERED: HEPARIN SODIUM (PORCINE) 5000 UNITS/ML 1ML VIAL ONE (12:46)
--- NOTE | 2024-05-17 13:38 | DVHPN2 ---
Progress Note Date Seen: May 17, 2024 Medical Necessity Reason Pt with a Central, PICC or Fol: No Subjective Patient reports: Feels better Other Systems: s p cath Objective vital signs Vital Sign Date Time Temp Pulse Resp B/P (MAP) Pulse Ox O2 Delivery O2 Flow Rate FiO2 05/17/24 13:11 98.0 67 17 114/74 (87) 97 98.0 05/17/24 08:00 Room Air* 0 21 Total Intake and Output 05/16/24 05/16/24 05/17/24 15:00 23:00 07:00 Intake Total 760 ml 0 ml Balance 760 ml 0 ml medications Current Medications Medications Dose Ordered Sig/Demian Route Start Time Stop Time Status Last Admin Dose Admin Lisinopril 5 mg DAILY PO 05/14/24 10:00 05/17/24 08:28 5 MG Metoprolol Succinate 25 mg DAILY PO 05/14/24 10:00 05/17/24 08:29 25 MG Atorvastatin Calcium 20 mg DAILY PO 05/14/24 10:00 05/17/24 08:28 20 MG Pantoprazole Sodium 40 mg BID IV 05/14/24 04:00 05/17/24 08:30 40 MG Spironolactone 25 mg DAILY PO 05/14/24 10:00 05/15/24 09:19 25 MG Empaglifozin 10 mg DAILY PO 05/14/24 10:00 05/17/24 08:29 10 MG Morphine Sulfate 15 mg Q12HR PRN PO 05/14/24 15:00 05/17/24 05:05 15 MG Oxycodone/ Acetaminophen 2 tab Q8HPRN PRN PO 05/14/24 15:15 05/17/24 06:34 2 TAB Patient Own Medication 1 tab DAILY PO 05/16/24 10:00 Sertraline HCl 100 mg BID@0600,1200 PO 05/16/24 06:00 05/17/24 05:03 100 MG Baclofen 10 mg Q8HR PO 05/15/24 22:00 05/17/24 05:03 10 MG Ondansetron HCl 4 mg Q4HPRN PRN IV 05/16/24 02:15 05/16/24 02:27 4 MG Aspirin 81 mg DAILY PO 05/16/24 10:00 05/16/24 11:41 81 MG Gabapentin 100 mg TID PO 05/16/24 22:00 05/17/24 05:03 100 MG Capsaicin 1 applic Q8HR TOP 05/16/24 22:00 05/16/24 22:43 1 APPLIC Examination: GENERAL:Abnormal, HEENT:Abnormal, LUNGS:Abnormal, CVS:Abnormal, ABDOMEN:Abnormal laboratory and microbiology Laboratory Tests 05/17/24 06:45 Test 05/17/24 06:45 Range/Units Serum Glucose 97 74-106 mg/dL Microbiology Date/Time Source Procedure Growth Status 05/14/24 05:57 Nose MRSA Screen - Final Complete Problem List/Assessment/Plan Problem List/Assessment/Plan moderate CAD HTN psych disorder obesity asa, statin no PCI indicated outpt fu cv cleared for dc Plan discussed with: Patient My Orders My Orders Orders - TINO ECHEVERRIA MD Procedure Category Date Status Time Cl Left Heart Cath CL 05/17/24 Taken 12:14 Cardiac DIET 05/17/24 Transmitted Diet-2gna,Lofat,Lochol Lunch Date of Service: May 17, 2024 Billing Provider: TINO ECHEVERRIA MD Common Visit Codes: NOT BILLABLE TINO ECHEVERRIA MD May 17, 2024 13:38
--- NOTE | 2024-05-17 13:39 | DVHOP2 ---
Operative Report Operative Report CARDIAC HUMAN RESOURCES OPERATIONS MANAGER PROCEDURE REPORT [place], [place] Date of Service: 05/17/24 Gun Striper: Tino Echeverria MD PROCEDURES PERFORMED: Coronary angiogram, left heart catheterization, conscious sedation administration and supervision, less than 15 minutes; fluoroscopy use and interpretation. PREOPERATIVE DIAGNOSES: ACS POSTOP DIAGNOSIS: ACS DESCRIPTION OF PROCEDURE: The patient or appropriate family signed informed co nsent understanding the risks, benefits and alternatives of the procedure, they wished to proceed. The patient was brought to the cardiac floating labor gang supervisor in n.p.o. state. The patient was prepped in a sterile fashion. Sedation was used per cardiac cath protocol. I administered 2 mL of 2% lidocaine to the right wrist. With an antegrade front wall puncture. I cannulated the right radial artery and placed a 6-Kinyarwanda Glidesheath slender. Next, an intra-arterial spasmolytic was administered. Next, a - 5[place] catheter and guide and were used for coronary angiogram and LVEDP measurement and pressure pullback. At the completion of procedure, all guides and wires were removed, and there were no immediate complications. 5000 U of IV heparin given FINDINGS: RCA: Moderate vessel off the right sinus of Valsalva, there is no severe flow limiting stenosis. mild plaque LEFT MAIN: Moderate size left main, it bifurcates into LAD and circumflex. no stenosis CIRCUMFLEX: Moderate caliber vessel coming off the left main with no flow limiting stenosis. LAD: LAD is a moderate caliber vessel coming of the left main. mid LAD has sequential 30-40% stenosis CONCLUSIONS: 1. mild to moderate CAD non critical TINO ECHEVERRIA MD May 17, 2024 13:39
[2024-05-17] MEDS ORDERED: KETOROLAC TROMETH 30 MG/ML 1ML VIAL IV PRN (15:30)
--- NOTE | 2024-05-17 16:56 | DVHPNRES ---
Progress Note Date Seen: May 17, 2024 Resident Creating Document: MARY RUBIO RESIDENT Medical Necessity Reason Pt with a Central, PICC or Fol: No Subjective Review of Systems Seb Bustillos is a 54-year-old male patient who presents to the ED with complaints of intermittent dyspnea which worsens with exertion and improves with rest which has been occurring for the past month, but has increased in frequency recently prompting his visit. Other associated symptoms are generalized body aches, fatigue, diaphoresis and poor appetite. He was recently discharged one week ago due to multiple syncopal episodes with head trauma, but currently still complains of body aches (shoulders, neck and right hip). Completed echocardiogram which showed decreased LVEF, no ischemia workup was completed during that admission, was discharged with optimal medical therapy for HFrEF. Denies palpitation, orthopnea, chest pain, cough, congestion, or fever. He is a poor historian and endorses Past Medical History: Dyslipidemia, obesity, recently diagnosed HFrEF (LVEF 30- 35 on 03/2024, previous LVEF on 06/2023 55%), persistent atrial fibrillation (chads Vasc 3 /has bled 2) currently under apixaban, CVA, GERD, schizoaffective disorder, depression, chronic back pain secondary to cervical spine osteoarthritis with surgical fusion at C4-C6, vitamin-D deficiency Past Surgical History: Cervical spine degenerative disease status post fusion of C4-C5 and C5-C6 Family history: Noncontributory Social history: Lives with in [place]. Denies current tobacco, alcohol and other drug abuse Allergies: Codeine Home medication: Baclofen 10 mg p.o. t.i.d., vitamin-D, metoprolol titrate 25 mg p.o. b.i.d., morphine, pantoprazole 40 mg p.o. daily, benztropine,Brexpiprazole, lisinopril, oxycodone, pregabalin, sertraline, Amitiza Patient seen and examined at bedside. Patient currently feels dyspnea in variable functional class. Completed left heart catheterization which showed nonsignificant obstructive coronary arteries. Have optimize pain medication due to neuropathic pain (on gabapentin). Objective vital signs Vital Sign Date Time Temp Pulse Resp B/P (MAP) Pulse Ox O2 Delivery O2 Flow Rate FiO2 05/17/24 16:44 97.9 69 16 103/58 (73) 95 97.9 05/17/24 08:00 Room Air* 0 21 Total Intake and Output 05/16/24 05/16/24 05/17/24 15:00 23:00 07:00 Intake Total 760 ml 0 ml Balance 760 ml 0 ml medications Current Medications Medications Dose Ordered Sig/Demian Route Start Time Stop Time Status Last Admin Dose Admin Lisinopril 5 mg DAILY PO 05/14/24 10:00 05/17/24 08:28 5 MG Metoprolol Succinate 25 mg DAILY PO 05/14/24 10:00 05/17/24 08:29 25 MG Atorvastatin Calcium 20 mg DAILY PO 05/14/24 10:00 05/17/24 08:28 20 MG Pantoprazole Sodium 40 mg BID IV 05/14/24 04:00 05/17/24 08:30 40 MG Spironolactone 25 mg DAILY PO 05/14/24 10:00 05/15/24 09:19 25 MG Empaglifozin 10 mg DAILY PO 05/14/24 10:00 05/17/24 08:29 10 MG Patient Own Medication 1 tab DAILY PO 05/16/24 10:00 Sertraline HCl 100 mg BID@0600,1200 PO 05/16/24 06:00 05/17/24 05:03 100 MG Baclofen 10 mg Q8HR PO 05/15/24 22:00 05/17/24 15:47 10 MG Ondansetron HCl 4 mg Q4HPRN PRN IV 05/16/24 02:15 05/16/24 02:27 4 MG Aspirin 81 mg DAILY PO 05/16/24 10:00 05/16/24 11:41 81 MG Gabapentin 100 mg TID PO 05/16/24 22:00 05/17/24 15:47 100 MG Capsaicin 1 applic Q8HR TOP 05/16/24 22:00 05/16/24 22:43 1 APPLIC Ketorolac Tromethamine 15 mg Q8HPRN PRN IV 05/17/24 15:30 05/22/24 15:29 Morphine Sulfate 15 mg Q12HR PO 05/18/24 02:00 Oxycodone/ Acetaminophen 2 tab Q8HPRN PRN PO 05/17/24 16:45 Examination Patient lying in bed, in no acute distress General: Lucid, afebrile, mucosae are moist Cardiovascular: Normal S1 and S2. No murmurs, gallops or rubs Respiratory: Normal ventilation mechanics. Clear lung sounds on auscultation Abdomen: Soft, nontender, no organomegaly, normal bowel sounds MSK/skin: Mobilizes 4 limbs. Skin is dry and warm. Puncture site with no bleeding, normal pulses. Neurological: Oriented in 3 spheres. No motor no sensitive deficits. Pupils are isocoric and reactive laboratory and microbiology Laboratory Tests 05/17/24 06:45 Test 05/17/24 06:45 Range/Units Serum Glucose 97 74-106 mg/dL Microbiology Date/Time Source Procedure Growth Status 05/14/24 05:57 Nose MRSA Screen - Final Complete Problem List/Assessment/Plan Problem List/Assessment/Plan Assessment: # Nonischemic cardiomyopathy # Acute systolic congestive heart failure newly diagnosed (HFrEF, [id number]%), deteriorated function since one year ago # Persistent Atrial fibrillation with moderate ventricular response (chads Vasc 3 / has bled 2) secondary hypercoagulability state # Hypertensive urgency # Ruled out CVA # Chronic back pain - status post implanted device # neuropathic pain # Musculoskeletal pain secondary to multiple episodes of syncope # History of syncope, unknown etiology (rule out cardiogenic etiology) # Schizoaffective disorder # Depression # Hyperlipidiemia # GERD Plan: Currently patient is in telemetry status 05/17/2024: Left heart catheterization which showed nonobstructive coronary arteries On GMDT: Metoprolol, lisinopril spironolactone, jardiance Resumed atorvastatin, switch apixaban to enoxaparin due to eventual left heart catheterization on Thursday Optimize pain therapy (added gabapentin and Ketoralac). Patient is allergic to capsaicin cream Completed head CT which ruled out acute intracranial pathology Cardiology on board: Decided to complete left heart catheterization on Thursday (postponed due to technical difficulties) to rule out ischemia for probable cause of dyspnea. Goals of care discussed with patient for over 18 minutes: Full code status Case discussed with Dr Louis, patient and nurses: Completed left heart catheterization which showed nonobstructive coronary arteries. Optimize pain medication. Plan discussed with: Patient, Other (Nurses) My Orders My Orders Orders - MARY RUBIO RESIDENT Procedure Category Date Status Time Ketorolac Injection PHA 05/17/24 In Process (Toradol Injection) 15:30 Morphine Extended PHA 05/18/24 In Process Release Tab (Oramorph 02:00 Oxycodone W/ Acet PHA 05/17/24 In Process 5/325mg Tab (Percocet 16:45 Date of Service: May 17, 2024 Billing Provider: ESTELA LOUIS MD Common Visit Codes: [id number] INP/OBS CARE(HIGH) MARY RUBIO RESIDENT May 17, 2024 16:56 ESTELA LOUIS MD May 20, 2024 15:45
[2024-05-17] MEDS: OXYCODONE W/ ACETAMINOPHEN 5/325MG TABLET PO PRN (21:44)
[2024-05-18 01:00] VITALS: BP 120/66; PULSE 70; RESP 16; TEMP 98.1; O2SAT 96
[2024-05-18] MEDS: MORPHINE SULF 15mg ER tab PO SCH (03:44)
[2024-05-18 04:47] LABS: Basophils # (auto) 0 10 ^3/uL (0-0.2); Basophils % (auto) 0.6 % (0.0-2.0); Eosinophils # (auto) 0.1 10 ^3/uL (0-0.8); Eosinophils % (auto) 2.6 % (0.0-7.0); Hematocrit 50.4 % (41.0-53.0); Lymphocytes # (auto) 1.3 10 ^3/uL (0.4-5.4); Lymphocytes % (auto) 33.3 % (10.0-50.0); Mean Corpuscular Hgb Conc. 33.8 g/dL (32.0-36.0); Mean Corpuscular Volume 88.8 fL (80.0-100.0); Monocytes # (auto) 0.6 10 ^3/uL (0-1.3); Monocytes % (auto) 14.9 % (0.0-12.0); Neutrophils # (auto) 1.8 10 ^3/uL (1.6-8.6); Neutrophils % (auto) 48.6 % (37.0-80.0); Nucleated Red Blood Cells % 0.1 %; Platelet Count (auto) 224 10^3/uL (140-450); Red Blood Cells 5.67 10^6/uL (4.5-5.90); Red Cell Distribution Width 14.2 % (11.8-14.3); White Blood Cell 3.8 10^3/uL (4.4-10.8)
[2024-05-18 04:48] LABS: Chloride 103 mmol/L (98-107); Potassium 4.9 mmol/L (3.5-5.1); Sodium 138 mmol/L (136-145)
[2024-05-18 04:49] LABS: Anion Gap 6 (5-15); Carbon Dioxide 29 mmol/L (20-31)
[2024-05-18 04:54] LABS: BUN/Creatinine Ratio 15.7 (10.0-20.0); Blood Urea Nitrogen 16 mg/dL (9-23); Glucose 93 mg/dL (74-106)
[2024-05-18 04:56] LABS: Calcium 10.4 mg/dL (8.7-10.4)
[2024-05-18 05:00] VITALS: BP 109/62; PULSE 64; RESP 16; TEMP 97.7; O2SAT 95
[2024-05-18 08:00] VITALS: PULSE 63; PULSE 72; RESP 18; O2SAT 99
[2024-05-18 09:30] VITALS: BP 94/52; PULSE 70; RESP 18; TEMP 97.7; O2SAT 99
[2024-05-18] MEDS ORDERED: SPIR25TA PO (09:38)
[2024-05-18] MEDS ORDERED: LISI-275 PO (09:38)
[2024-05-18] MEDS ORDERED: GAB100C PO (09:38)
[2024-05-18] MEDS ORDERED: ATOR20TA50 PO (09:38)
[2024-05-18] MEDS ORDERED: METO-6 PO (09:38)
[2024-05-18] MEDS ORDERED: EMPA1TAB PO (09:38)
--- NOTE | 2024-05-18 11:20 | DVHDSRES ---
Discharge Summary Date of Admission Resident Creating Document: MARY RUBIO RESIDENT May 13, 2024 at 21:43 Date of Discharge: May 18, 2024 Labs/Diagnostic Data: Laboratory Results Test 05/18/24 03:58 05/16/24 06:18 05/15/24 08:20 05/14/24 08:42 White Blood Count 3.8 10^3/uL (4.4-10.8) Red Blood Count 5.67 10^6/uL (4.5-5.90) Hemoglobin 17.0 g/dL (13.5-17.5) Hematocrit 50.4 % (41.0-53.0) Mean Corpuscular Volume 88.8 fL (80.0-100.0) Mean Corpuscular Hemoglobin 30.0 pg (28.0-32.0) Mean Corpuscular Hemoglobin Concent 33.8 g/dL (32.0-36.0) Red Cell Distribution Width 14.2 % (11.8-14.3) Platelet Count 224 10^3/uL (140-450) Mean Platelet Volume 9.8 fL (6.9-10.8) Neutrophils (%) (Auto) 48.6 % (37.0-80.0) Lymphocytes (%) (Auto) 33.3 % (10.0-50.0) Monocytes (%) (Auto) 14.9 % (0.0-12.0) Eosinophils (%) (Auto) 2.6 % (0.0-7.0) Basophils (%) (Auto) 0.6 % (0.0-2.0) Neutrophils # (Auto) 1.8 10 ^3/uL (1.6-8.6) Lymphocytes # (Auto) 1.3 10 ^3/uL (0.4-5.4) Monocytes # (Auto) 0.6 10 ^3/uL (0-1.3) Eosinophils # (Auto) 0.1 10 ^3/uL (0-0.8) Basophils # (Auto) 0 10 ^3/uL (0-0.2) Nucleated Red Blood Cells 0.1 % Sodium Level 138 mmol/L (136-145) Potassium Level 4.9 mmol/L (3.5-5.1) Chloride Level 103 mmol/L (98-107) Carbon Dioxide Level 29 mmol/L (20-31) Anion Gap 6 (5-15) Blood Urea Nitrogen 16 mg/dL (9-23) Creatinine 1.02 mg/dL (0.700-1.30) Glomerular Filtration Rate Calc 87 mL/min (>90) BUN/Creatinine Ratio 15.7 (10.0-20.0) Serum Glucose 93 mg/dL (74-106) Calcium Level 10.4 mg/dL (8.7-10.4) Total Bilirubin 0.9 mg/dL (0.2-1.0) Aspartate Amino Transferase (AST) 18 U/L (13-40) Alanine Aminotransferase (ALT) 16 U/L (7-40) Alkaline Phosphatase 72 U/L (46-116) Total Protein 6.7 g/dL (5.7-8.2) Albumin 4.5 g/dL (3.2-4.8) Hemoglobin A1c 5.2 % A1C (<5.7) Phosphorus Level 3.9 mg/dL (2.4-5.1) Magnesium Level 2.2 mg/dL (1.6-2.6) Vitamin B12 Level 359 pg/mL (211-911) Vitamin D 25-Hydroxy 30.6 ng/mL (30.0-100) Prothrombin Time 11.1 sec (9.3-11.8) Prothrombin Time INR 1.05 (0.9-1.15) Activated Partial Thromboplast Time 29.9 SEC (24.5-34.5) Triglycerides Level 170 mg/dL (< 150) Cholesterol Level 160 mg/dL (< 200) LDL Cholesterol 105 mg/dL (< 100) HDL Cholesterol 45 mg/dL (40-59) Test 05/14/24 05:54 05/13/24 22:08 05/13/24 14:58 05/13/24 00:00 Urine Color Light-yellow (Yellow) Urine Clarity Clear (Clear) Urine pH 5.5 (5.0-9.0) Urine Specific [place] 1.020 (1.001-1.035) Urine Protein Negative (Negative) Urine Ketones Negative (Negative) Urine Blood Negative /uL (Negative) Urine Nitrite Negative (Negative) Urine Bilirubin Negative (Negative) Urine Urobilinogen Normal mg/dL (Negative) Urine Leukocyte Esterase Negative /uL (Negative) Urine RBC <1 /hpf (0 - 3) Urine Microscopic WBC 1 /HPF (0-3) Urine Squamous Epithelial Cells None seen /hpf (<5) Urine Bacteria None seen /hpf (None Seen) Urine Glucose Normal mg/dL (Normal) Urine Opiates Screen Neg (NEGATIVE) Urine Fentanyl Screen Neg (NEGATIVE) Urine Barbiturates Screen Neg (NEGATIVE) Urine Phencyclidine Screen Neg (NEGATIVE) Urine Amphetamines Screen Neg (NEGATIVE) Urine Benzodiazepines Screen Neg (NEGATIVE) Urine Cocaine Screen Neg (NEGATIVE) Urine Cannabinoids Screen Pos (NEGATIVE) Erythrocyte Sedimentation Rate 4 mm/hr (0-20) Creatine Kinase 110 U/L (46-171) C-Reactive Protein High Sensitivity 0.07 mg/dL (<1.0) Thyroid Stimulating Hormone (TSH) 2.37 uIU/mL (0.55-4.78) Troponin I High Sensitivity < 3 ng/L (</=54) B-Type Natriuretic Peptide 19.27 pg/mL (0-100) Influenza Type A Antigen Negative (Negative) Influenza Type B Antigen Negative (Negative) SARS-CoV-2 Antigen (Rapid) Negative (NEGATIVE) Other Laboratory Tests 05/18/24 03:58 Brief Hx & Hospital Course: Seb Bustillos is a 54-year-old male patient who presents to the ED with complaints of intermittent dyspnea which worsens with exertion and improves with rest which has been occurring for the past month, but has increased in frequency recently prompting his visit. Other associated symptoms are generalized body aches, fatigue, diaphoresis and poor appetite. He was recently discharged one week ago due to multiple syncopal episodes with head trauma, but currently still complains of body aches (shoulders, neck and right hip). Completed echocardiogram which showed decreased LVEF, no ischemia workup was completed during that admission, was discharged with optimal medical therapy for HFrEF. Denies palpitation, orthopnea, chest pain, cough, congestion, or fever. He is a poor historian and endorses Past Medical History: Dyslipidemia, obesity, recently diagnosed HFrEF (LVEF 30- 35 on 03/2024, previous LVEF on 06/2023 55%), persistent atrial fibrillation (chads Vasc 3 /has bled 2) currently under apixaban, CVA, GERD, schizoaffective disorder, depression, chronic back pain secondary to cervical spine osteoarthritis with surgical fusion at C4-C6, vitamin-D deficiency Past Surgical History: Cervical spine degenerative disease status post fusion of C4-C5 and C5-C6 Family history: Noncontributory Social history: Lives with in [place]. Denies current tobacco, alcohol and other drug abuse Allergies: Codeine Home medication: Baclofen 10 mg p.o. t.i.d., vitamin-D, metoprolol titrate 25 mg p.o. b.i.d., morphine, pantoprazole 40 mg p.o. daily, benztropine,Brexpiprazole, lisinopril, oxycodone, pregabalin, sertraline, Amitiza Brief hospital course: Acute systolic congestive heart failure was newly diagnosed secondary to non ischemic cardiomyopathy (HFrEF with LVEF of 30-35%) associated with persistent atrial fibrillation in moderate ventricular response and hypertensive urgency, requiring low-dose IV diuretics, currently on GDM T, p.o. antihypertensive medication and anticoagulation. Evaluated by Cardiology who completed coronary artery angiography which showed nonobstructive coronary arteries, suggest follow-up as outpatient to evaluate LVEF improvement, does not qualify for life vest at this point, patient may also benefit from rhythm control of his AFib. Patient currently complains of chronic back and neuropathic pain, continued home medication which is optimize by pain management doctor, suggest continuing follow up with his pain management doctor as outpatient. Due to recent mechanical falls, ordered head CT which showed no acute intracranial pathology, suspect falls or secondary to opioid use, have discussed with patient to avoid opiods and see if he would benefit from trigger point injections versus epidural with pain management, he will follow up with pain management doctor. Patient hemodynamically stable, with chronic symptoms (back pain), in condition to be discharged home. Was granted under optimal medical therapy (GDM T which includes lisinopril, empagliflozin, metoprolol and spironolactone), gave her advice on healthy lifestyle habits, and follow up with PCP, Cardiology, and pain management doctor. DIAGNOSIS # Nonischemic cardiomyopathy # Acute systolic congestive heart failure newly diagnosed (HFrEF, [id number]%), deteriorated function since one year ago # Persistent Atrial fibrillation with moderate ventricular response (chads Vasc 3 / has bled 2) secondary hypercoagulability state # Hypertensive urgency # Ruled out CVA # Chronic back pain - status post implanted device # neuropathic pain # Musculoskeletal pain secondary to multiple episodes of syncope # History of syncope, unknown etiology (rule out cardiogenic etiology) # Schizoaffective disorder # Depression # Hyperlipidiemia # GERD Examination Patient lying in bed, in no acute distress General: Lucid, afebrile, mucosae are moist Cardiovascular: Normal S1 and S2. No murmurs, gallops or rubs Respiratory: Normal ventilation mechanics. Clear lung sounds on auscultation Abdomen: Soft, nontender, no organomegaly, normal bowel sounds MSK/skin: Mobilizes 4 limbs. Skin is dry and warm. Puncture site with no bleeding, normal pulses. Neurological: Oriented in 3 spheres. No motor no sensitive deficits. Pupils are isocoric and reactive Goals of care discussed with patient for over 18 minutes: Full code status Case discussed with Dr Irwin, patient and nurses Operations or Procedures CHEST RADIOGRAPH Indication: SOB Technique: Single frontal view of the chest was obtained Comparison: XY CHEST PORTABLE on DOS: 04/29/2024 FINDINGS: Lines and Tubes: None Lungs: Interval decrease in right lower lobe opacity . Pleura: No effusion.No pneumothorax. Cardiomediastinal contours: Unremarkable Pulmonary vasculature: Within normal limits. Bones: No acute osseous abnormality. IMPRESSION: 1. . Interval decrease in right lower lobe opacity may represent residual airspace disease versus atelectasis. HS:Y ATED BY: JOSSE TAPIA MD DICTATED DATE/TIME: 05/13/24 1511 EXAM: CT HEAD WITHOUT CONTRAST HISTORY: Syncope with head truma COMPARISON: CT HEAD WITHOUT CONTRAST on DOS: 04/29/24, CT HEAD WITHOUT CONTRAST on DOS: 09/28/23, CT HEAD WITHOUT CONTRAST on DOS: 07/11/23 TECHNIQUE: Axial images were obtained and reformatted in coronal and sagittal planes. All CT scans at this medical facility are performed using dose modulation techniques as appropriate to a performed exam including the following: Automated exposure control was utilized; adjustment of the MA and/or KV according to patient size; and use of iterative reconstruction technique. CT Dose: CTDI volume is 48.65 mGy. Dose-length product is 941.48 mGy*cm FINDINGS: Supratentorial Region: No evidence for large acute territorial ischemia. No intracranial hemorrhage is noted. Posterior Fossa: No acute abnormality. Brainstem: Unremarkable. Sellar/Suprasellar Region: Unremarkable. Ventricles, Cisterns, Sulci: Age-appropriate. Orbits: Unremarkable. Paranasal Sinuses: Unremarkable. Mastoid Air Cells: Unremarkable. Vasculature: Unremarkable. Bones/Soft Tissues: No acute abnormality. Other: None. IMPRESSION: 1. No acute intracranial process. ATED BY: YADIRA OWEN MD DICTATED DATE/TIME: 05/14/24 3284 Operative Report CARDI[facility] FARM CONSULTANT PROCEDURE REPORT [place], [place] Date of Service: 05/17/24 Sales Training Manager: Satish Echeverria MD PROCEDURES PERFORMED: Coronary angiogram, left heart catheterization, conscious sedation administration and supervision, less than 15 minutes; fluoroscopy use and interpretation. PREOPERATIVE DIAGNOSES: ACS POSTOP DIAGNOSIS: ACS DESCRIPTION OF PROCEDURE: The patient or appropriate family signed informed consent understanding the risks, benefits and alternatives of the procedure, they wished to proceed. The patient was brought to the cardiac greenskeeper laborer in n.p.o. state. The patient was prepped in a sterile fashion. Sedation was used per cardiac cath protocol. I administered 2 mL of 2% lidocaine to the right wrist. With an antegrade front wall puncture. I cannulated the right radial artery and placed a 6-[place] Glidesheath slender. Next, an intra-arterial spasmolytic was administered. Next, a - 5[place] catheter and guide and were used for coronary angiogram and LVEDP measurement and pressure pullback. At the completion of procedure, all guides and wires were removed, and there were no immediate complications. 5000 U of IV heparin given FINDINGS: RCA: Moderate vessel off the right sinus of Valsalva, there is no severe flow limiting stenosis. mild plaque LEFT MAIN: Moderate size left main, it bifurcates into LAD and circumflex. no stenosis CIRCUMFLEX: Moderate caliber vessel coming off the left main with no flow limiting stenosis. LAD: LAD is a moderate caliber vessel coming of the left main. mid LAD has sequential 30-40% stenosis CONCLUSIONS: 1. mild to moderate CAD non critical SATISH ECHEVERRIA MD May 17, 2024 13:39 DICTATED BY:SATISH ECHEVERRIA MD DICTATED DATE/TIME:05/17/24 1339 Condition at Discharge: Good Final Diagnosis/Problems List # Nonischemic cardiomyopathy # Acute systolic congestive heart failure newly diagnosed (HFrEF, [id number]%), deteriorated function since one year ago # Persistent Atrial fibrillation with moderate ventricular response (chads Vasc 3 / has bled 2) secondary hypercoagulability state # Hypertensive urgency # Ruled out CVA # Chronic back pain - status post implanted device # neuropathic pain # Musculoskeletal pain secondary to multiple episodes of syncope # History of syncope, unknown etiology (rule out cardiogenic etiology) # Schizoaffective disorder # Depression # Hyperlipidiemia # GERD Discharge Disposition: Home SNF Discharge Will this Physician continue t: No Discharge Instruct/Medications Diet: Consistent carbohydrate, Cardiac 2g Na,low cholest Activity: No Restrictions, As Tolerated Follow Up/Referral: PCP Cardiology Pain management Medications: Per EMR (GDMT lisinopril, empagliflozin, metoprolol and spironolactone) Discharge Statement: "Patient was advised to return to the ER or call 911 if any headaches, dizziness, shortness of breath, chest pain, abdominal pain, bleeding, fevers, or worsening of medical condition. Patient was counseled about treatment plan, medications, possible side effects, patientverbalized understanding. All questions were answered to the best of my ability. This discharge took greater then 30 minutes in planning, reviewing documentation, counseling the patient, and discussing with other team members." ASSESSMENT ASSESSMENT Assessment Congestive heart failure Date of Service: May 18, 2024 Billing Provider: ESTELA IRWIN MD Common Visit Codes: 06387-FBH/OBS DISCH DAY >30min MARY RUBIO May 18, 2024 11:20 ESTELA IRWIN MD May 20, 2024 15:46
[2024-05-18] MEDS ORDERED: APIX5TAB PO (11:41)
[2024-05-18 12:42] VITALS: BP 113/73; PULSE 72; RESP 18; TEMP 97.7; O2SAT 99
[2024-05-18 12:47] VITALS: BP 101/63; PULSE 70; RESP 18; TEMP 97.2; O2SAT 96
[2024-05-18] MEDS ORDERED: APIXABAN 5 MG TAB PO SCH (22:00)
== END 2024-05-18 14:00 | disposition home or self-care (01) | DRG 286 ==
LOC: ER 14:16 → OVERFLOW 21:43 → WEST WING 21:47 → OVERFLOW 21:47 → WEST WING 05-14 02:12 → TELE-WESTW 05-14 17:44
PROVIDERS: ADMIT Student in an Organized Health Care Education/Training Program; ATTEND Internal Medicine
PROC: B211YZZ Fluoroscopy of Multiple Coronary Arteries using Other Contrast (ICD-10-PCS; principal; 2024-05-17)
PROC: 4A023N7 Measurement of Cardiac Sampling and Pressure, Left Heart, Percutaneous Approach (ICD-10-PCS; 2024-05-17)
DX: I25.118 Atherosclerotic heart disease of native coronary artery with other forms of angina pectoris (principal); I50.21 Acute systolic (congestive) heart failure; I48.19 Other persistent atrial fibrillation; I11.0 Hypertensive heart disease with heart failure; G89.29 Other chronic pain; I16.0 Hypertensive urgency; F25.9 Schizoaffective disorder, unspecified; I42.8 Other cardiomyopathies; Z68.34 Body mass index [BMI] 34.0-34.9, adult; R61 Generalized hyperhidrosis; Z20.822 Contact with and (suspected) exposure to COVID-19; F32.A Depression, unspecified; M47.812 Spondylosis without myelopathy or radiculopathy, cervical region; M54.9 Dorsalgia, unspecified; E78.5 Hyperlipidemia, unspecified; E66.9 Obesity, unspecified; K21.9 Gastro-esophageal reflux disease without esophagitis; Z86.73 Personal history of transient ischemic attack (TIA), and cerebral infarction without residual deficits; Z88.5 Allergy status to narcotic agent; Z79.899 Other long term (current) drug therapy; Z98.1 Arthrodesis status; Z79.01 Long term (current) use of anticoagulants; Z80.6 Family history of leukemia; Z80.8 Family history of malignant neoplasm of other organs or systems
CPT/HCPCS: 36415; 70450; 71045; 80048; 80053; 80061; 80307; 81001; 82306; 82550; 82607; 83036; 83735; 83880; 84100; 84443; 84484; 85025; 85610; 85652; 85730; 86141; 86850; 86900; 86901; 87081; 87426; 87804; 93005; 93454; 97110; 97116; 97163; 99152; 99291; G0378; J2250; J2405; J2470; Q9967